=== PATIENT | female | born 1985 | race Caucasian/White ===

== ENCOUNTER 2017-10-22 13:48 | Emergency (ER) | payer OTHER, SELFPAY ==
[2017-10-22 14:09] VITALS: BP 148/90; PULSE 72; RESP 16; TEMP 36.8; O2SAT 98; BMI 41.9
--- NOTE | 2017-10-22 14:16 | HMH.EDUTC ---
[facility] [place] Clinical Impression: Influenza, Dental abscess Disposition: Home, Self-Care Condition on Discharge: Good Instructions: Tooth Decay, Tooth Abscess, Influenza Additional Instructions: ? Too late to start Tamiflu. Most effective when started within 48 hours of symptoms onset ? Lots of rest ? Increase Fluids water, Gatorade, powerade, pedialyte,if /toddler/child ? Alternate Tylenol and / or ibuprofen as discussed for fever, aches, chills x 24 hours without medication for symptoms ? Follow up IMMEDIATELY for new or worsening Symptoms OR no noticeable improvement over the next 48-72 hours, 911 for difficulty or breathing ? You or your child area contagious until no fever, aches, chills for 24 hours with medication for symptoms Take medication as prescribed Return if needed Follow up with dentist as scheduled Prescriptions: Clindamycin HCl [Clindamycin 300mg Cap] 300 mg PO Q6H #28 cap Referrals: Gigi Blank MD [Primary Care Provider] - Time of Disposition: 14:55 Medical Decision Making - Medical Records Medical records reviewed: Yes: I reviewed the patient's medical records. Vital Signs: 10/22/17 14:09 Temperature 98.2 F Temperature Source Oral Pulse Rate [Right Brachial] 72 Respiratory Rate 16 Blood Pressure [Right Arm] 148/90 Blood Pressure Mean [Right Arm] 109 Blood Pressure Source [Right Arm] Automatic Cuff Blood Pressure Position [Right Arm] Sitting 02 Sat by Pulse Oximetry 98 Oxygen Delivery Method Room Air - Talon Inquiry Pt receiving controlled substance: No Talon was queried for this patient: No [facility] [place] - General Stated complaint: abcess in mouth,cough Mode of Arrival: Ambulatory Source of Information: Patient Limitations: No Limitations Description of Symptoms (Recalled from Triage Doc. by RN): pt c/o cough, fever, and oral abcess started a week ago. HEENT Symptoms (Recalled from RN notes): Yes (oral abcess) Resp Symptoms (Recalled from RN notes): Yes (cough) Skin Symptoms (Recalled from RN notes): Yes (fever) MS Symptoms (Recalled from RN notes): No Functional Status (Recalled from RN notes): na - History of Present Illness Provider Complaint: Patient state that she has not felt well in about a week States that she has had cough, congestion fever since Thursday State that yesterday she noticed that she was having some redness and swelling in the top gum above her teeth States that most of her teeth are rotten and broken off at the gumline and she has had several dental abcesses in the past States that she is scheduled to have teeth surgically removed on 11/11 but now she is having this infection - Related Data Home Medications Medication Instructions Recorded Confirmed Aspirin [Aspirin 81mg chewable 81 mg PO DAILY 10/22/17 10/22/17 tab] Buprenorphine HCl/Naloxone HCl 1 each SL DAILY 10/22/17 10/22/17 [Buprenorphin-Naloxon 8-2 mg Sl] Fluconazole [Diflucan 200mg tablet] 200 mg PO BID 10/22/17 10/22/17 Gabapentin [Neurontin 600mg 600 mg PO DAILY 10/22/17 10/22/17 tablet] Metoprolol Succinate 25 mg PO DAILY 10/22/17 10/22/17 Sertraline HCl [Zoloft] 150 mg PO DAILY 10/22/17 10/22/17 hydrOXYzine pamoate [Hydroxyzine 100 mg PO DAILY 10/22/17 10/22/17 Pamoate] Previous Rx's Medication Instructions Recorded Clindamycin HCl [Clindamycin 300mg 300 mg PO Q6H #28 cap 10/22/17 Cap] Allergies Allergy/AdvReac Type Severity Reaction Status Date / Time cefaclor [From CECLOR] Allergy Mild Verified 10/22/17 14:14 ibuprofen [IBUPROFEN] Allergy Mild Verified 10/22/17 14:14 Sulfa (Sulfonamide Allergy Mild Verified 10/22/17 14:14 Antibiotics) [SULFA (SULFONAMIDE ANTIBIOTICS)] tramadol [TRAMADOL] Allergy Mild Verified 10/22/17 14:14 - Worker's Comp Is this a Worker's Comp case?: No [facility] History I have reviewed the patient's past medical history: Yes Laterality Cases: Bilateral: Tonsillectomy - *Social Histo
[2017-10-22 14:28] LABS: UTC Influenza A Antigen Positive (Negative); UTC Influenza B Antigen Negative (Negative)
--- NOTE | 2017-10-22 14:28 | ED_ITS ---
[facility] [place] Disposition Clinical Impression: Influenza, Dental abscess Disposition: Home, Self-Care Condition on Discharge: Good Instructions: Tooth Decay, Tooth Abscess, Influenza Additional Instructions: ? Too late to start Tamiflu. Most effective when started within 48 hours of symptoms onset ? Lots of rest ? Increase Fluids water, Gatorade, powerade, pedialyte,if /toddler/child ? Alternate Tylenol and / or ibuprofen as discussed for fever, aches, chills x 24 hours without medication for symptoms ? Follow up IMMEDIATELY for new or worsening Symptoms OR no noticeable improvement over the next 48-72 hours, 911 for difficulty or breathing ? You or your child area contagious until no fever, aches, chills for 24 hours with medication for symptoms Take medication as prescribed Return if needed Follow up with dentist as scheduled Prescriptions: Clindamycin HCl [Clindamycin 300mg Cap] 300 mg PO Q6H #28 cap Referrals: Gigi Blank MD [Primary Care Provider] - Time of Disposition: 14:55 Medical Decision Making - Medical Records Medical records reviewed: Yes: I reviewed the patient's medical records. Vital Signs: 10/22/17 14:09 Temperature 98.2 F Temperature Source Oral Pulse Rate [Right Brachial] 72 Respiratory Rate 16 Blood Pressure [Right Arm] 148/90 Blood Pressure Mean [Right Arm] 109 Blood Pressure Source [Right Arm] Automatic Cuff Blood Pressure Position [Right Arm] Sitting 02 Sat by Pulse Oximetry 98 Oxygen Delivery Method Room Air - Talon Inquiry Pt receiving controlled substance: No Talon was queried for this patient: No [facility] [place] HPI - General Stated complaint: abcess in mouth,cough Mode of Arrival: Ambulatory Source of Information: Patient Limitations: No Limitations Description of Symptoms (Recalled from Triage Doc. by RN): pt c/o cough, fever, and oral abcess started a week ago. HEENT Symptoms (Recalled from RN notes): Yes (oral abcess) Resp Symptoms (Recalled from RN notes): Yes (cough) Skin Symptoms (Recalled from RN notes): Yes (fever) MS Symptoms (Recalled from RN notes): No Functional Status (Recalled from RN notes): na - History of Present Illness Provider Complaint: Patient state that she has not felt well in about a week States that she has had cough, congestion fever since Thursday State that yesterday she noticed that she was having some redness and swelling in the top gum above her teeth States that most of her teeth are rotten and broken off at the gumline and she has had several dental abcesses in the past States that she is scheduled to have teeth surgically removed on 11/11 but now she is having this infection - Related Data Home Medications Medication Instructions Recorded Confirmed Aspirin [Aspirin 81mg chewable 81 mg PO DAILY 10/22/17 10/22/17 tab] Buprenorphine HCl/Naloxone HCl 1 each SL DAILY 10/22/17 10/22/17 [Buprenorphin-Naloxon 8-2 mg Sl] Fluconazole [Diflucan 200mg tablet] 200 mg PO BID 10/22/17 10/22/17 Gabapentin [Neurontin 600mg 600 mg PO DAILY 10/22/17 10/22/17 tablet] Metoprolol Succinate 25 mg PO DAILY 10/22/17 10/22/17 Sertraline HCl [Zoloft] 150 mg PO DAILY 10/22/17 10/22/17 hydrOXYzine pamoate [Hydroxyzine 100 mg PO DAILY 10/22/17 10/22/17 Pamoate] Previous Rx's Medication Instructions Recorded Clindamycin HCl [Clindamycin 300mg 3
== END 2017-10-22 14:58 | disposition home or self-care (01) ==
PROVIDERS: Emergency Provider Nurse Practitioner; Family Provider Emergency Medicine; PCP Emergency Medicine
DX: J10.1 Influenza due to other identified influenza virus with other respiratory manifestations (principal); K04.7 Periapical abscess without sinus; F17.210 Nicotine dependence, cigarettes, uncomplicated; Z79.82 Long term (current) use of aspirin; Z88.1 Allergy status to other antibiotic agents; Z88.2 Allergy status to sulfonamides; Z88.6 Allergy status to analgesic agent
CPT/HCPCS: 87804; 99201

== ENCOUNTER 2017-12-11 19:42 | Observation (INO) | payer OTHER, SELFPAY ==
[2017-12-11 19:45] VITALS: BP 80/60; PULSE 93; RESP 20; TEMP 37.2; O2SAT 98; BMI 38.0
[2017-12-11 20:11] LABS: Basophils % 0.6 % (0.1-2.0); Eosinophils # 0.2 K/mm3 (0.0-0.4); Eosinophils % 2.6 % (0.1-12.0); Hematocrit 48.1 % (37.0-47.0); Hemoglobin 14.4 g/dL (12.2-16.2); Lymphocytes # 1.6 K/mm3 (0.7-4.5); Lymphocytes % 27.1 K/mm3 (10-50); Mean Corpuscular HGB Conc 29.9 g/dL (31.8-35.4); Mean Platelet Volume 8.5 fl (7.4-10.4); Monocytes # 0.4 K/mm3 (0.1-1.0); Monocytes % 7.3 % (1.7-9.3); Neutrophils # 3.7 K/mm3 (1.8-7.8); Neutrophils % 62.3 % (37.0-80.0); Platelet Count 143 K/mm3 (142-424); Red Blood Count 5.53 M/mm3 (4.20-5.40); Red Cell Distribution Width 15.1 % (11.5-17.5)
[2017-12-11 20:31] LABS: Microscopic, Urine URINE MICROSCOPIC (MICROSCOPIC)
[2017-12-11 20:38] LABS: Alanine Aminotransferase 29 U/L (12-78); Albumin Level 3.7 gm/dL (3.4-5.0); Albumin/Globulin Ratio 1.1 (1.1-1.8); Alkaline Phosphatase 145 U/L (46-116); Anion Gap 10.2 mEq/L (5-15); Aspartate Amino Transferase 23 U/L (15-37); Bilirubin,Total 0.7 mg/dL (0.2-1.0); Blood Urea Nitrogen 11 mg/dL (7-18); CKMB Relative Index 1.2 U/L (0-4.0); Calcium 8.5 mg/dL (8.5-10.1); Carbon Dioxide 31 mmol/L (21.0-32.0); Chloride 100 mmol/L (98-107); Creatine Kinase 74 U/L (26-192); Creatine Kinase MB 0.9 ng/ml (0.0-3.6); Creatinine Clearance Estimated 171 mL/min (0-300); Creatinine,Serum 0.86 mg/dL (0.55-1.02); Estimated Glomerular Filt Rate 77 ml/min (>60); GFR (African American) 94 ML/MIN (>60); Globulin 3.4 gm/dl (1.3-3.2); Glucose 104 mg/dL (74-106); Potassium 3.2 mmoL/L (3.5-5.1); Sodium 138 mmol/L (136-145); Total Protein,Serum 7.1 gm/dL (6.4-8.2); Troponin I < 0.02 ng/ml (0.00-0.06)
[2017-12-11 20:44] LABS: Appearance,Urine CLOUDY (Clear); Bilirubin,Urine Negative (Negative); Blood, Urine Negative (Negative); Color,Urine YELLOW (Yellow); Glucose,Urine (UA) Negative (Negative); Ketones,Urine Negative (Negative); Leukocyte Esterase,Urine 2+ (Negative); Nitrate,Urine Negative (Negative); PH,Urine 8.5 (5.0-8.5); Protein,Urine 1+ (Negative); Specific Gravity, Urine 1.015 (1.005-1.030)
[2017-12-11 20:52] LABS: Amphetamine/Metha Screen,Urine Negative ng/mL (<1000); Barbiturates Screen,Urine Negative ng/mL (<200); Benzodiazepines Screen,Urine Positive ng/mL (200); Cannabinoid Screen,Urine Negative ng/mL (<50); Cocaine Screen,Urine Negative ng/g (<300); Methadone Screen,Urine Negative ng/mL (<300); Opiate Screen,Urine Positive ng/mL (<300); Phencyclidine Screen,Urine Negative ng/mL (<25)
[2017-12-11 20:53] LABS: Bacteria,Urine 1+ /lpf; RBC,Urine Occasional #/hpf (0-3); Squamous Epithelial Cell,Urine Occasional #/hpf (0-5); WBC,Urine TNTC #/hpf (0-3)
--- NOTE | 2017-12-11 21:13 | HMH.EDOD ---
ED Disposition Clinical Impression: Abnormal EKG Drug overdose Qualifiers: Encounter type: initial encounter Injury intent: accidental or unintentional Qualified Code(s): T50.901A - Poisoning by unspecified drugs, medicaments and biological substances, accidental (unintentional), initial encounter Disposition: Admitted as Observation Condition on Discharge: Serious Referrals: Gigi Blank MD [Primary Care Provider] - - Critical Care Critical Care Time: Yes Attestation: On 12/11/17, the high probability of a clinically significant, sudden or life threatening deterioration of the following system(s) required my full and direct attention, intervention and personal management. The time I documented below is in addition to time spent performing reported procedures but includes the following listed in this critical care notation. Total Critical Care Time: 60 Vital system(s) involved:: Metabolic Failure My critical care processes included: Assessment & monitoring of V/S, Initial and Re-exams, Coordinating Care, Medication Orders and management Medical Decision Making - Medical Records Medical records reviewed: Yes: I reviewed the patient's medical records. - Talon Inquiry Pt receiving controlled substance: No Vital Signs: 12/11/17 19:45 12/11/17 23:46 12/12/17 02:39 Temperature 98.9 F 98.9 F Temperature Source Oral Oral Pulse Rate 85 Pulse Rate [Right Brachial] 93 H 73 Respiratory Rate 20 20 18 Blood Pressure 121/78 Blood Pressure [Right Arm] 80/60 138/75 Blood Pressure Mean [Right Arm] 66 96 Blood Pressure Source [Right Arm] Manual Cuff/ Palpation Automatic Cuff Blood Pressure Position Sitting Blood Pressure Position [Right Arm] Sitting 02 Sat by Pulse Oximetry 98 94 L Oxygen Delivery Method Nasal Cannula Room Air - Lab Data Lab results reviewed: Yes: I reviewed the patient's lab results. Lab Results 12/11/17 20:05: WBC 6.0, RBC 5.53 H, Hgb 14.4, Hct 48.1 H, MCV 87.0, MCH 26.0 L, MCHC 29.9 L, RDW 15.1, Plt Count 143, MPV 8.5, Neut % (Auto) 62.3, Lymph % (Auto) 27.1, [place] % (Auto) 7.3, Eos % (Auto) 2.6, Baso % (Auto) 0.6, Neut # (Auto) 3.7, Lymph # (Auto) 1.6, [place] # (Auto) 0.4, Eos # (Auto) 0.2, Baso # (Auto) 0.0 12/11/17 20:05: Sodium 138, Potassium 3.2 L, Chloride 100, Carbon Dioxide 31, Anion Gap 10.2, BUN 11, Creatinine 0.86, Estimated Creat Clear 171, Estimated GFR 77, Est GFR ( Amer) 94, Glucose 104, Calcium 8.5, Total Bilirubin 0.7, AST 23, ALT 29, Alkaline Phosphatase 145 H, Total Creatine Kinase 74, CK-MB (CK-2) 0.9, CK-MB (CK-2) Rel Index 1.2, Troponin I < 0.02, Total Protein 7.1, Albumin 3.7, Globulin 3.4 H, Albumin/Globulin Ratio 1.1 12/11/17 20:20: Urine Color Yellow, Urine Appearance Cloudy, Urine pH 8.5, Ur Specific [place] 1.015, Urine Protein 1+, Urine Glucose (UA) Negative, Urine Ketones Negative, Urine Blood Negative, Urine Nitrate Negative, Urine Bilirubin Negative, Urine Urobilinogen 1.0, Ur Leukocyte Esterase 2+ A, Urine RBC Occasional, Urine WBC Tntc, Ur Squamous Epith Cells Occasional, Urine Bacteria 1+ 12/11/17 20:20: Urine Opiates Screen Positive H, Ur Barbituates Screen Negative, Ur Phencyclidine Scrn Negative, Ur Amphetamines Screen Negative, U Methamphetamines Scrn Negative, U Benzodiazepines Scrn Positive H, Urine Cocaine Screen Negative, U Marijuana (THC) Screen Negative 12/11/17 20:20: Urine HCG, Qual Negative 12/11/17 22:10: Troponin I < 0.02 Result diagrams: 12/11/17 20:05 12/11/17 20:05 Orders (Tests/Meds): ED MEDICATIONS Generic Name Dose Route Start Last Admin Trade Name Freq PRN Reason Stop Dose Admin Levofloxacin/Dextrose 500 mg in 100 mls @ 100 mls/hr 12/11/17 23:45 12/12/17 02:00 Levaquin 500mg/100ml Premix IV 12/25/17 23:44 100 mls/hr Q24H KHOA Administration Protocol Discontinued Medications Generic Name Dose Route Start Last Admin Trade Name Freq PRN Reason Stop Dose Admin Lorazepam 2 mg 12/11/17 20:02
[2017-12-11 22:53] LABS: Troponin I < 0.02 ng/ml (0.00-0.06)
--- NOTE | 2017-12-11 23:38 | PC.NURSE ---
Abhay Smith speaking with Dr. Zamora
--- NOTE | 2017-12-11 23:40 | XR_ITS ---
XR chest portable HISTORY: History of heart disease and prior CABG ITS.REASON: overdose ORDERING PHYSICIAN: Jenaro Moore MD PATIENT AGE: 32 years COMPARISON: 08/16/2015 FINDINGS: There has been prior median sternotomy. There are low lung volumes. Calcified granulomas present in right upper lobe. No lobar consolidation or collapse. Patchy density noted in the right lung base and could be due to vascular crowding or atelectasis. IMPRESSION: Vascular crowding versus patchy atelectasis or infiltrate in the right lung base
[2017-12-11 23:46] VITALS: BP 138/75; PULSE 73; RESP 20; O2SAT 94
[2017-12-11 23:51] LABS: Urine Pregnancy, HCG Qual. Negative (Negative)
[2017-12-12 02:39] VITALS: BP 121/78; PULSE 85; RESP 18; TEMP 37.2; O2SAT 94
[2017-12-12 03:21] VITALS: BP 150/90; PULSE 71; RESP 26; TEMP 36.8; O2SAT 92; BMI 42.7
[2017-12-12 03:49] VITALS: O2SAT 92
[2017-12-12 04:12] LABS: Acetaminophen 0 ug/mL (10-30)
[2017-12-12 04:48] LABS: Blood Urea Nitrogen 11 mg/dL (7-18); Carbon Dioxide 28 mmol/L (21.0-32.0); Chloride 103 mmol/L (98-107); Creatinine Clearance Estimated 108 mL/min (0-300); Creatinine,Serum 0.77 mg/dL (0.55-1.02); Estimated Glomerular Filt Rate 88 ml/min (>60); GFR (African American) 107 ML/MIN (>60); Glucose 107 mg/dL (74-106); Magnesium 1.6 mg/dL (1.4-2.2); Phosphorous 3.9 mg/dL (2.4-4.9); Sodium 137 mmol/L (136-145)
[2017-12-12 05:02] LABS: Troponin I < 0.02 ng/ml (0.00-0.06)
[2017-12-12 05:18] LABS: Basophils % 0.2 % (0.1-2.0); Eosinophils % 0.3 % (0.1-12.0); Hematocrit 44.3 % (37.0-47.0); Hemoglobin 13.5 g/dL (12.2-16.2); Lymphocytes # 1.3 K/mm3 (0.7-4.5); Lymphocytes % 18.8 K/mm3 (10-50); Mean Corpuscular HGB Conc 30.4 g/dL (31.8-35.4); Mean Corpuscular Hemoglobin 26.1 pg (27.0-31.2); Mean Corpuscular Volume 85.7 fl (81-99); Mean Platelet Volume 9.4 fl (7.4-10.4); Monocytes # 0.5 K/mm3 (0.1-1.0); Monocytes % 6.9 % (1.7-9.3); Neutrophils # 5.2 K/mm3 (1.8-7.8); Neutrophils % 73.8 % (37.0-80.0); Platelet Count 131 K/mm3 (142-424); Red Blood Count 5.17 M/mm3 (4.20-5.40); White Blood Count 7.1 K/mm3 (4.8-10.8)
--- NOTE | 2017-12-12 05:19 | PC.NURSE ---
PT ARRIVED TO FLOOR A&O X3. GCS OF 15. PT DID HOWEVER DISPLAY TREMORS AND STATED THAT SHE WAS HAVING MUSCLE TREMORS. SHE REQUESTED ATIVAN. PT WAS ADMIN ATIVAN PER ORDER AND VSS. PT HAS REMAINED ON RA THIS SHIFT. FAMILY AT BEDSIDE. NO OTHER CONCERNS NOTED AT THIS TIME. WILL CONTINUE TO MONITOR.
[2017-12-12 07:21] VITALS: BP 159/80; PULSE 67; RESP 16; TEMP 37.2; O2SAT 90
--- NOTE | 2017-12-12 07:33 | PC.NURSE ---
REPORT HAND OFF TO Kei HARDEN
[2017-12-12 08:00] VITALS: O2SAT 90
--- NOTE | 2017-12-12 09:04 | HMH.HP ---
*Admission Date: 12/12/17 *Chief complaint: drug overdose *History of present illness: Che is a 32-year-old white female who was brought to the emergency room last night by EMS because of altered mental status and twitching with a history of drug overdose. She has a history of drug addiction and has been following with a Suboxone clinic in [place]. In addition to Suboxone she has been abusing heroine and Gabapentin. There was no history of lefty seizures. Upon evaluation in the emergency room, her urine drug screen was positive for benzos and opiates. Laboratory data was remarkable for hypokalemia with a potassium of 3.2. Cardiac enzymes were negative. EKG did however show some inverted T waves in the lateral leads. 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 She received supportive care in emergency room including IV fluids and appeared clinically stable however because of her EKG changes she was admitted for serial enzymes to rule out acute SC. At the time of my exam this morning, she is sleeping but easily arousable. She complains of some general malaise and body aches. Denies chest pain, palpitations, or shortness of breath. She's had some nausea but no vomiting. Denies abdominal pain. She does feel hungry [facility] History Medical History: Reports:: Congestive Heart Failure, Deep Vein Thrombosis, Hypertension Denies:: Cancer, Diabetes Mellitus Type 1, Diabetes Mellitus Type 2, MRSA Comment: Valvular heart disease/bacterial endocarditis Laterality Cases: Bilateral: Tonsillectomy Other Surgeries: Yes: Hysterectomy-Partial, Other (gallbladder removal) Amputation: No Fractures: No Comment: Cholecystectomy - *Social History Educational Level: Attended High School Smoking Status: Current every day smoker Tobacco Type: cigarettes # Packs/Day (cigarettes): 2 Alcohol Intake: never Substance Use Type: heroin, prescription drug Last Used Substance: hours (ago) Occupational Status: unemployed Housing: apartment - Psychiatric History Expresses thoughts of harming self/others: None Suicide Plan Description: No Plan *Family Hx:: Hyperlipidemia, Hypertension Review of Systems - Constitutional Reports body ache(s), Denies fever(s) - Eyes Reports blurry vision, Denies double vision - ENT Reports nasal congestion, Denies bleeding gums, Denies difficulty swallowing - *Cardiovascular Denies chest pain, Denies shortness of breath, Denies rapid, pounding, or irregular heartbeat - *Respiratory Denies chest congestion, Denies shortness of breath, Denies coughing up blood - *Gastrointestinal Reports constipation, Reports nausea, Denies abdominal pain, Denies vomiting - *Genitourinary Denies difficulty urinating - *Musculoskeletal Denies joint swelling - Integumentary/Breasts Denies lesions - *Neurologic Denies abnormal walking, Denies abnormal speech Comments: muscle twitching - Psychiatric Reports abnormal sleep pattern, Reports lack of enjoyment, Denies hearing things others do not hear - Endocrine Denies heat intolerance, Denies rapid, pounding, or irregular heartbeat - Hematologic/Lymphatic Denies easy bleeding, Denies easy bruising - Allergic/Immunologic Denies itchy eyes, Denies throat swelling, Denies wheezing Meds Home Medications Medication Instructions Recorded Confirmed Type Buprenorphine HCl/Naloxone HCl 1 tab SL DAILY 10/22/17 12/12/17 History [Buprenorphin-Naloxon 8-2 mg Sl] Fluconazole [Diflucan 200mg tablet] 200 mg PO BID 10/22/17 12/12/17 History Gabapentin [Neurontin 600mg 600 mg PO TID 10/22/17 12/12/17 History tablet] Sertraline HCl [Zoloft] 150 mg PO DAILY 10/22/17 12/12/17 History hydrOXYzine pamoate [Hydroxyzine 100 mg PO TID 10/22/17 12/12/17 History Pamoate] Aspirin [Aspirin 81mg EC Tab] 81 mg PO DAILY 12/12/17 12/12/17 History Metoprolol Tartrate [Lopressor 25 mg PO BID 12/12/17
--- NOTE | 2017-12-12 11:20 | P.CONPHA_ITS ---
[facility] Pharmacy VTE Monitoring - Patient Demographics Admission date: 12/12/17 Report Date: 12/12/17 Time: 11:20 Allergies/Adverse Reactions: Patient Allergies cefaclor [From CECLOR] Allergy (Mild, Verified 12/11/17 19:57) ibuprofen [IBUPROFEN] Allergy (Mild, Verified 12/11/17 19:57) Sulfa (Sulfonamide Antibiotics) [SULFA (SULFONAMIDE ANTIBIOTICS)] Allergy (Mild , Verified 12/11/17 19:57) tramadol [TRAMADOL] Allergy (Mild, Verified 12/11/17 19:57) Height: 1.73 m Weight: 127.459 kg Patient Problems: Current Active Problems Drug overdose (Acute) Abnormal EKG (Acute) - VTE Risk Labs: VTE Related Lab Results Hgb 13.5 g/dL (12.2-16.2) 12/12/17 03:35 Hct 44.3 % (37.0-47.0) 12/12/17 03:35 Plt Count 131 K/mm3 (142-424) L 12/12/17 03:35 BUN 11 mg/dL (7-18) 12/12/17 03:35 Creatinine 0.77 mg/dL (0.55-1.02) 12/12/17 03:35 Estimated Creat Clear 108 mL/min (0-300) 12/12/17 03:35 VTE Score: 8 VTE Risk Level: Moderate Risk - Prophylaxis VTE Prophylaxis Ordered?: Yes Types of VTE Prophylaxis: TEDS Knee High Location of Applied Device: Bilateral Lower Extremeties - VTE Diagnosis Confirmed Treatment or plan recommended: Continue Current Treatment
--- NOTE | 2017-12-13 11:40 | HMH.DCSUM ---
General - General Admission date: 12/12/17 <Zee Talamantes - 12/13/17 11:43> Discharge date: 12/12/17 <Zee Talamantes - 12/13/17 11:43> HPI HPI: Che is a 32-year-old white female who was brought to the emergency room last night by EMS because of altered mental status and twitching with a history of drug overdose. She has a history of drug addiction and has been following with a Suboxone clinic in [place]. In addition to Suboxone she has been abusing heroine and Gabapentin. There was no history of lefty seizures. Upon evaluation in the emergency room, her urine drug screen was positive for benzos and opiates. Laboratory data was remarkable for hypokalemia with a potassium of 3.2. Cardiac enzymes were negative. EKG did however show some inverted T waves in the lateral leads. 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 She received supportive care in emergency room including IV fluids and appeared clinically stable however because of her EKG changes she was admitted for serial enzymes to rule out acute MA. <Zee Talamantes - 12/13/17 11:43> Hospital Course Hospital Course: By the next day she appeared stable. Enzymes were negative. Her diet was advanced and she was stable to be discharged home and will f/u with her process checker as outpt. <Zee Talamantes - 12/13/17 11:43> Objective Vital signs: Temp Pulse Resp BP Pulse Ox 99.0 F 67 16 159/80 90 L 12/12/17 07:21 12/12/17 07:21 12/12/17 07:21 12/12/17 07:21 12/12/17 08:00 <Juan Antonio Conn - 12/22/17 08:35> Temp Pulse Resp BP Pulse Ox 99.0 F 67 16 159/80 90 L 12/12/17 07:21 12/12/17 07:21 12/12/17 07:21 12/12/17 07:21 12/12/17 08:00 <Zee Talamantes - 12/13/17 11:43> Narrative: - Constitutional Comments: awakened from sleep. NAD. Cooperative with exam - *Routine HEENT Exam Head: Present: normocephalic, atraumatic Eye: Present: PERRL. Absent: scleral injection, nystagmus ENT: Present: mucous membranes moist, nares patent. Absent: sinus tenderness - *Routine Neck Exam Present: supple. Absent: carotid bruit, lymphadenopathy - *Routine Respiratory Exam Present: CTA bilaterally. Absent: respiratory distress, wheezes - *Routine Cardiovascular Exam Present: RRR, murmur - *Routine Abdominal Exam Present: soft. Absent: tenderness, distended, guarding Comments: diminished BS - *Routine Extremities Exam Absent: edema - *Routine Skin Exam Comments: papular rash on upper arms <Zee Talamantes 12/13/17 11:43> DS: Diagnosis - Discharge Diagnosis (1) Abnormal EKG Status: Acute (2) Drug abuse and dependence Status: Acute (3) Hx of tricuspid valve replacement Status: Acute (4) Hypertension Status: Acute <Zee Talamantes 12/13/17 11:40> (1) Abnormal EKG Status: Acute (2) Drug overdose Status: Acute (3) Drug abuse and dependence Status: Acute (4) Hypertension Status: Acute (5) Valvular heart disease Status: Acute (6) Hx of tricuspid valve replacement Status: Acute <Juan Antonio Cnon 12/22/17 08:35> Discharge Plan - Patient Discharge Instructions ACTIVITY: Continue current activity <Zee Talamantes 12/13/17 11:43> DIET: continue same diet <Zee Talamantes 12/13/17 11:43> Patient Instructions: DI for Drug Overdose in Adults <Juan Antonio Conn 12/22/17 08:35> Forms: <Juan Antonio Cnon 12/22/17 08:35> - Follow up Plan Follow up with: Gigi Blank MD [Primary Care Provider] - (5-7 days) <Juan Antonio Conn 12/22/17 08:35> Disposition: Home, Self-Care <Juan Antonio Conn 12/22/17 08:35> Home Medications: Home Medications Medication Instructions Recorded Confirmed Type Buprenorphine HCl/Naloxone HCl 1 tab SL DAILY 10/22/17 12/12/17 History [Buprenorphin-Naloxon 8-2 mg Sl] Fluconazole [Dif
--- NOTE | 2017-12-13 11:44 | P.DS_ITS ---
General - General Admission date: 12/12/17 <Zee Talamantes - 12/13/17 11:43> Discharge date: 12/12/17 <Zee Talamantes - 12/13/17 11:43> HPI HPI: Che is a 32-year-old white female who was brought to the emergency room last night by EMS because of altered mental status and twitching with a history of drug overdose. She has a history of drug addiction and has been following with a Suboxone clinic in [place]. In addition to Suboxone she has been abusing heroine and Gabapentin. There was no history of lefty seizures. Upon evaluation in the emergency room, her urine drug screen was positive for benzos and opiates. Laboratory data was remarkable for hypokalemia with a potassium of 3.2. Cardiac enzymes were negative. EKG did however show some inverted T waves in the lateral leads. 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 She received supportive care in emergency room including IV fluids and appeared clinically stable however because of her EKG changes she was admitted for serial enzymes to rule out acute MS. <Zee Talamantes - 12/13/17 11:43> Hospital Course Hospital Course: By the next day she appeared stable. Enzymes were negative. Her diet was advanced and she was stable to be discharged home and will f/u with her demand planning manager as outpt. <Zee Talamantes - 12/13/17 11:43> Objective Vital signs: Temp Pulse Resp BP Pulse Ox 99.0 F 67 16 159/80 90 L 12/12/17 07:21 12/12/17 07:21 12/12/17 07:21 12/12/17 07:21 12/12/17 08:00 <Juan Antonio Conn - 12/22/17 08:35> Temp Pulse Resp BP Pulse Ox 99.0 F 67 16 159/80 90 L 12/12/17 07:21 12/12/17 07:21 12/12/17 07:21 12/12/17 07:21 12/12/17 08:00 <Zee Talamantes - 12/13/17 11:43> Narrative: - Constitutional Comments: awakened from sleep. NAD. Cooperative with exam - *Routine HEENT Exam Head: Present: normocephalic, atraumatic Eye: Present: PERRL. Absent: scleral injection, nystagmus ENT: Present: mucous membranes moist, nares patent. Absent: sinus tenderness - *Routine Neck Exam Present: supple. Absent: carotid bruit, lymphadenopathy - *Routine Respiratory Exam Present: CTA bilaterally. Absent: respiratory distress, wheezes - *Routine Cardiovascular Exam Present: RRR, murmur - *Routine Abdominal Exam Present: soft. Absent: tenderness, distended, guarding Comments: diminished BS - *Routine Extremities Exam Absent: edema - *Routine Skin Exam Comments: papular rash on upper arms <Zee Talamantes - 12/13/17 11:43> DS: Diagnosis - Discharge Diagnosis (1) Abnormal EKG Status: Acute (2) Drug abuse and dependence Status: Acute (3) Hx of tricuspid valve replacement Status: Acute (4) Hypertension Status: Acute <Zee Talamantes - 12/13/17 11:40> (1) Abnormal EKG Status: Acute (2) Drug overdose Status: Acute (3) Drug abuse and dependence Status: Acute (4) Hypertension Status: Acute (5) Valvular heart disease Status: Acute (6) Hx of tricuspid valve replacement Status: Acute <Juan Antonio Conn - 12/22/17 08:35> Discharge Plan - Patient Discharge Instructions ACTIVITY: Continue current activity <Zee Talamantes - 12/13/17 11:43> DIET: continue same diet <Zee Talamantes - 12/13/17 11:43>
== END 2017-12-12 14:28 | disposition home or self-care (01) ==
LOC: ER 19:51 → 2ND 12-12 02:50
PROVIDERS: Admitting Provider Family Medicine; Emergency Provider Emergency Medicine; Family Provider Emergency Medicine; PCP Emergency Medicine; Visit Provider Family Medicine
DX: T50.7X1A Poisoning by analeptics and opioid receptor antagonists, accidental (unintentional), initial encounter (principal); T42.6X1A Poisoning by other antiepileptic and sedative-hypnotic drugs, accidental (unintentional), initial encounter; T40.1X1A Poisoning by heroin, accidental (unintentional), initial encounter; R41.82 Altered mental status, unspecified; E88.9 Metabolic disorder, unspecified
CPT/HCPCS: 36415; 71045; 80048; 80053; 80305; 80329; 81001; 81025; 82550; 82553; 83735; 84100; 84484; 85025; 87086; 93005; 96365; 96367; 96375; 99284; G0378; J1956; J2405

== ENCOUNTER 2018-12-23 08:18 | Observation (INO) ==
--- NOTE | 2018-12-23 08:32 | Emergency Department Note ---
ED Disposition Clinical Impression: Pulmonary emboli Qualifiers: Pulmonary embolism type: unspecified Chronicity: unspecified Acute cor pulmonale presence: without acute cor pulmonale Qualified Code(s): I26.99 - Other pulmonary embolism without acute cor pulmonale Pneumonia Qualifiers: Pneumonia type: due to unspecified organism Laterality: unspecified laterality Lung location: unspecified part of lung Qualified Code(s): J18.9 - Pneumonia, unspecified organism Disposition: Admitted as Observation Condition on Discharge: Good Instructions: DI for Diarrhea and Traveler's Diarrhea -- Adult, DI for Acute Abdomen, DI for Diarrhea and Traveler's Diarrhea -- Child, DI for Nausea -- Adult, DI for Nausea -- Child Referrals: Provider,Referral, MD [Primary Care Provider] - - Critical Care Critical Care Time: No Attestation: On , the high probability of a clinically significant, sudden or life threatening deterioration of the following system(s) required my full and direct attention, intervention and personal management. The time I documented below is in addition to time spent performing reported procedures but includes the following listed in this critical care notation. Medical Decision Making - Medical Records Medical records reviewed: Yes: I reviewed the patient's medical records. - Talon Inquiry Pt receiving controlled substance: Yes Talon was queried for this patient: No Risks and benefits of using a controlled substance: were discussed with pt by me Vital Signs: 12/23/18 08:19 12/23/18 08:37 12/23/18 09:07 Temperature 99.5 F Temperature Source Oral Pulse Rate [Right Radial] 80 Respiratory Rate 20 Blood Pressure [Right Arm] 138/55 L Blood Pressure Mean [Right Arm] 82 Blood Pressure Source [Right Arm] Blood Pressure Position [Right Arm] 02 Sat by Pulse Oximetry 90 L 94 L 95 Oxygen Delivery Method Room Air Nasal Cannula Nasal Cannula Oxygen Flow Rate (LPM) 2 3.5 12/23/18 09:18 12/23/18 10:11 12/23/18 10:30 Temperature 98.9 F 98.4 F Temperature Source Oral Oral Pulse Rate [Right Radial] 84 80 73 Respiratory Rate 19 18 16 Blood Pressure [Right Arm] 125/63 113/65 134/76 Blood Pressure Mean [Right Arm] 83 81 95 Blood Pressure Source [Right Arm] Automatic Cuff Automatic Cuff Automatic Cuff Blood Pressure Position [Right Arm] Supine Supine Supine 02 Sat by Pulse Oximetry 96 95 96 Oxygen Delivery Method Nasal Cannula Nasal Cannula Oxygen Flow Rate (LPM) 3 3 3 12/23/18 11:00 12/23/18 11:30 12/23/18 12:00 Temperature 97.6 F 98.3 F 98.0 F Temperature Source Oral Oral Oral Pulse Rate [Right Radial] 70 71 67 Respiratory Rate 19 20 20 Blood Pressure [Right Arm] 125/37 L 131/74 132/82 Blood Pressure Mean [Right Arm] 66 93 98 Blood Pressure Source [Right Arm] Automatic Cuff Automatic Cuff Automatic Cuff Blood Pressure Position [Right Arm] Supine Supine Supine 02 Sat by Pulse Oximetry 97 94 L 97 Oxygen Delivery Method Nasal Cannula Nasal Cannula Nasal Cannula Oxygen Flow Rate (LPM) 3 3 3 12/23/18 12:41 12/23/18 13:23 12/23/18 13:30 Temperature Temperature Source Pulse Rate [Right Radial] 68 64 65 Respiratory Rate 19 18 16 Blood Pressure [Right Arm] 128/80 117/68 130/79 Blood Pressure Mean [Right Arm] 96 84 96 Blood Pressure Source [Right Arm] Automatic Cuff Automatic Cuff Automatic Cuff Blood Pressure Position [Right Arm] Supine Supine Right Lateral 02 Sat by Pulse Oximetry 96 93 L 94 L Oxygen Delivery Method Nasal Cannula Nasal Cannula Nasal Cannula Oxygen Flow Rate (LPM) 3 3 3 12/23/18 14:00 12/23/18 14:34 12/23/18 15:13 Temperature 97.7 F Temperature Source Oral Pulse Rate [Right Radial] 67 62 61 Respiratory Rate 14 19 20 Blood Pressure [Right Arm] 137/86 95/54 L 119/76 Blood Pressure Mean [Right Arm] 103 67 90 Blood Pressure Source [Right Arm] Automatic Cuff Automatic Cuff Automatic Cuff Blood Pressure Position [Right Arm] Right Lateral Supine Supine 02 Sat by Pulse Oximetry 94 L 99 96 Oxygen Delivery Method Nasal Cannula Nasal Cannula Nasal Cannula Oxygen Flow Rate (LPM) 3 3 3 - Lab Data Lab Results 12/23/18 08:25: WBC 6.4, RBC 4.15 L, Hgb 11.5 L, Hct 35.0 L, MCV 84.3, MCH 27.6, MCHC 32.8, RDW 15.3, Plt Count 111 L, MPV 8.2, Neut % (Auto) 89.1 H, Lymph % ( Auto) 6.3 L, [place] % (Auto) 4.3, Eos % (Auto) 0.2, Baso % (Auto) 0.2, Neut # (Auto) 5.7, Lymph # (Auto) 0.4 L, [place] # (Auto) 0.3, Eos # (Auto) 0.0, Baso # (Auto) 0.0, Total Counted 100, Neutrophils % (Manual) 90 H, Band Neutrophils % 2.0, Lymphocytes % (Manual) 6 L, Monocytes % (Manual) 2, Platelet Estimate Sligh t decrease, RBC Morphology Normal 12/23/18 08:25: Sodium 137, Potassium 3.7, Chloride 101, Carbon Dioxide 24, Anion Gap 15.7 H, BUN 8, Creatinine 0.93, Estimated Creat Clear 138, Estimated GFR 70, Est GFR ( Amer) 85, Glucose 150 H, Calcium 8.4 L, Total Bilirubin 0.9, AST 22, ALT 23, Alkaline Phosphatase 132 H, Troponin I < 0.02, Total Protein 6.8, Albumin 3.1 L, Globulin 3.7 H, Albumin/Globulin Ratio 0.8 L 12/23/18 08:25: Lactate 2.2 H 12/23/18 08:25: Urine Color Yellow, Urine Appearance Sl cloudy, Urine pH 7.0, Ur Specific [place] 1.010, Urine Protein Negative, Urine Glucose (UA) Negative, Urine Ketones Negative, Urine Blood 1+, Urine Nitrate Negative, Urine Bilirubin Negative, Urine Urobilinogen 1.0, Ur Leukocyte Esterase Negative, Urine RBC 3-5, Urine WBC Occasional, Ur Squamous Epith Cells 5-10, Urine Bacteria 2+ 12/23/18 08:25: Lipase 85 12/23/18 08:25: Serum HCG, Qual Negative 12/23/18 08:25: D-Dimer 1190 H* 12/23/18 08:25: Specimen Source Left radial, O2 % 3.5 lpm nc, ABG pH 7.59 H*, ABG pCO2 24.5 L, ABG pO2 132.4 H, ABG HCO3 22.7, ABG Total CO2 23.5, ABG O2 Saturation 99, ABG Base Excess 0.9, Donovan Test Acceptable 12/23/18 09:12: Urine Opiates Screen Positive H, Urine Methadone Screen Negati ve, Ur Barbituates Screen Negative, Ur Phencyclidine Scrn Positive H, Ur Am phetamines Screen Negative, U Benzodiazepines Scrn Negative, Urine Cocaine Screen Negative, U Marijuana (THC) Screen Positive H 12/23/18 13:02: Lactate 0.7 Result diagrams: 12/23/18 08:25 12/23/18 08:25 Orders (Tests/Meds): ED MEDICATIONS Generic Name Dose Route Start Last Admin Trade Name Freq PRN Reason Stop Dose Admin Levofloxacin/Dextrose 500 mg in 100 mls @ 100 mls/hr 12/23/18 14:15 12/23/18 14:19 Levaquin 500mg/100ml Premix IV 01/06/19 14:14 100 mls/hr Q24H KHOA Administration Protocol Discontinued Medications Generic Name Dose Route Start Last Admin Trade Name Freq PRN Reason Stop Dose Admin Albuterol/Ipratropium 3 ml 12/23/18 08:28 12/23/18 08:50 Duoneb 3ml Neb IH 12/23/18 08:29 3 ml ONCE ONE Administration Enoxaparin Sodium 100 mg 12/23/18 15:27 12/23/18 15:36 Lovenox 100mg/Ml Syringe SQ 12/23/18 15:28 100 mg ONCE ONE Administration Hydromorphone HCl 1 mg 12/23/18 09:22 12/23/18 09:23 Dilaudid 2mg/Ml Syringe IV 12/23/18 09:23 Not Given ONCE ONE Sodium Chloride 500 mls @ 999 mls/hr 12/23/18 09:30 12/23/18 10:15 Sod Chlor 0.9% 1000ml Bag IV 12/23/18 10:00 999 mls/hr .Q31M KHOA Administration Ioversol 70 ml 12/23/18 10:05 12/23/18 10:06 Rad-Optiray 350 100ml Vial IV 12/23/18 10:06 70 ml ONCE ONE Administration Protocol Morphine Sulfate 2 mg 12/23/18 09:17 12/23/18 09:20 Morphine 2mg/Ml Syringe IV 12/23/18 09:18 2 mg ONCE ONE Administration Morphine Sulfate 4 mg 12/23/18 14:26 12/23/18 14:31 Morphine 4mg/Ml Syringe IV 12/23/18 14:27 4 mg ONCE ONE Administration Ondansetron HCl 4 mg 12/23/18 08:59 12/23/18 09:01 Zofran 4mg/2ml Vial IV 12/23/18 09:00 4 mg ONCE ONE Administration Sodium Chloride 10 ml 12/23/18 10:05 12/23/18 10:06 Rad-Saline Flush 10ml Syringe IV 12/23/18 10:06 10 ml ONCE ONE Administration Sodium Chloride 20 ml 12/23/18 10:05 12/23/18 10:06 Rad-Ns 20ml Vial IV 12/23/18 10:06 20 ml ONCE ONE Administration Sodium Chloride 20 ml 12/23/18 10:05 12/23/18 10:06 Rad-Ns 20ml Vial IV 12/23/18 10:06 20 ml ONCE ONE Administration ORDERS Category Date Time Status Blood Culture Stat Micro 12/23/18 08:25 Received Urine Culture Stat Micro 12/23/18 08:25 Received ABG [Arterial Blood Gas] Stat RT 12/23/18 15:39 Ordered - CT Data CT Scan: Head, Chest Time Received: 15:[address] Reviewed: Yes: I have viewed the radiologist's interpretation - ECG Data Tracing #1 I reviewed this ECG and interpreted as documented below: Normal Sinus Rhythm: Yes (prolong QTc, no stemi) Medical Decision Narrative: admit d/w Dr Perez, differential includes pulmonary emboli, pneumonia, ileus, hypoxia, abnormal ekg General Adult HPI - General Chief complaint: Abdominal Pain Stated complaint: nausea Time Seen by Provider: 12/23/18 08:29 Mode of Arrival: EMS Source of Information: Patient, EMS Limitations: No Limitations Description of Symptoms (Recalled from ER Triage Doc. by RN): to ed per squad with c/o fever, nausea, vomiting, lower abd pain, lower back pain, sob x several days. pt states she has been unable "to keep anything down". squad reports oral temp per medic 103. pt denies diarrhea or sick contacts. cpta zofran 2mg. IV - History of Present Illness HPI narrative: 2 day hx NV and mild to mod lower abdominal ache rad to back, constant, +fever, no injury, +short of breath, hx copd, treated w/ zofran by ems, pt denies allergy to morphine - Related Data Home Medications Medication Instructions Recorded Confirmed Fluconazole [Diflucan] 400 mg PO DAILY 12/23/18 12/23/18 Allergies Allergy/AdvReac Type Severity Reaction Status Date / Time cefaclor [From CECLOR] Allergy Mild Verified 07/16/18 04:55 ibuprofen [IBUPROFEN] Allergy Mild Verified 07/16/18 04:55 Sulfa (Sulfonamide Allergy Mild Verified 07/16/18 04:55 Antibiotics) [SULFA (SULFONAMIDE ANTIBIOTICS)] tramadol [TRAMADOL] Allergy Mild Verified 07/16/18 04:55 [facility] History - Hepatitis A Screen Drug use history?: Yes High risk sexual behaviors?: No History of sexually transmitted infection?: No Currently employed?: No Childcare worker?: No Do you have indoor plumbing?: Yes Do you have electricity?: Yes Attestation statement:: This patient has been screened for Hepatitis A risk factors. Medical History: Reports:: Congestive Heart Failure, Deep Vein Thrombosis, Hypertension, MRSA Denies:: Cancer, Diabetes Mellitus Type 1, Diabetes Mellitus Type 2 Comment: Valvular heart disease/bacterial endocarditis Laterality Cases: Bilateral: Tonsillectomy Other Surgeries: Yes: Hysterectomy-Partial, Other (gallbladder removal) Amputation: No Fractures: No Comment: Cholecystectomy - Social History Smoking Status: Current every day smoker Tobacco Type: cigarettes # Packs/Day (cigarettes): 1 Alcohol Intake: never Substance Use Type: heroin Occupational Status: unemployed Housing: apartment - Psychiatric History Expresses thoughts of harming self/others: None Suicide Plan Description: No Plan Family Hx:: Hyperlipidemia, Hypertension ROS Obtained: Yes Systems reviewed as appropriate & no additional complaints - Constitutional Constitutional: Reports fever(s) - Eyes Eyes: Denies change in vision - ENT Ears, Nose, Mouth, and Throat: Denies difficulty swallowing - Cardiovascular Cardiovascular: Denies chest pain - Respiratory Respiratory: Yes cough, Yes dyspnea - Gastrointestinal Gastrointestingal: Reports: abdominal pain, vomiting - Musculoskeletal Musculoskeletal: Denies joint pain - Integumentary/Breasts Skin/Breast: Denies rash - Neurologic Neurologic: Denies dizziness Physical Exam - General General appearance: alert, in no apparent distress - Head Head exam: atraumatic - Eye Eye exam: Present: normal appearance - ENT ENT exam: Present: normal exam - Neck Neck exam: Present: normal inspection - Chest Chest inspection: Present: normal inspection - Respiratory Respiratory exam: Present: wheezes - Cardiovascular Cardiovascular exam: Present: regular rate, normal rhythm - Abdominal Exam Abdominal exam: Present: soft, tenderness. Absent: rebound - Extremities Exam Extremities exam: Present: normal inspection - Back Exam Back exam: Present: normal inspection - Neurological Exam Neurological exam: Present: alert, oriented X3 - Psychiatric Psychiatric exam: Present: normal affect, normal mood - Skin Skin exam: Present: warm, dry
[2018-12-23 08:58] LABS: Basophils % 0.2 % (0.1-2.0); Eosinophils % 0.2 % (0.1-12.0); Hemoglobin 11.5 g/dL (12.2-16.2); Lymphocytes # 0.4 K/mm3 (0.7-4.5); Lymphocytes % 6.3 % (10-50); Mean Corpuscular HGB Conc 32.8 g/dL (31.8-35.4); Mean Corpuscular Hemoglobin 27.6 pg (27.0-31.2); Mean Corpuscular Volume 84.3 fl (81-99); Mean Platelet Volume 8.2 fl (7.4-10.4); Monocytes # 0.3 K/mm3 (0.1-1.0); Monocytes % 4.3 % (1.7-9.3); Neutrophils # 5.7 K/mm3 (1.8-7.8); Neutrophils % 89.1 % (37.0-80.0); Platelet Count 111 K/mm3 (142-424); Red Blood Count 4.15 M/mm3 (4.20-5.40); Red Cell Distribution Width 15.3 % (11.5-17.5); White Blood Count 6.4 K/mm3 (4.8-10.8)
[2018-12-23 08:59] LABS: ABG Base Excess 0.9 mmol/L (-2.4-2.3); ABG HCO3 22.7 mmhg (22.0-26.0); ABG Oxygen Saturation 99 % (90-100); ABG PCO2 24.5 mmhg (35.0-45.0); ABG PO2 132.4 mmhg (80-100); ABG TCO2 23.5 mmhg (23-27)
[2018-12-23 09:03] LABS: Allen's Test Acceptable
[2018-12-23 09:04] LABS: ABG PH 7.59 mmol/L (7.35-7.45)
[2018-12-23 09:11] LABS: Alanine Aminotransferase 23 U/L (12-78); Albumin Level 3.1 gm/dL (3.4-5.0); Albumin/Globulin Ratio 0.8 (1.1-1.8); Alkaline Phosphatase 132 U/L (46-116); Anion Gap 15.7 mEq/L (5-15); Aspartate Amino Transferase 22 U/L (15-37); Bilirubin,Total 0.9 mg/dL (0.2-1.0); Blood Urea Nitrogen 8 mg/dL (7-18); Calcium 8.4 mg/dL (8.5-10.1); Carbon Dioxide 24 mmol/L (21.0-32.0); Chloride 101 mmol/L (98-107); Globulin 3.7 gm/dl (1.3-3.2); Glucose 150 mg/dL (74-106); Potassium 3.7 mmoL/L (3.5-5.1); Sodium 137 mmol/L (136-145); Total Protein,Serum 6.8 gm/dL (6.4-8.2)
[2018-12-23 09:15] LABS: Lymphocytes % 6 % (10-50); Monocytes % 2 % (2-9); Neutrophils % 90 % (42-76); RBC Morphology Normal; Total Cells Counted 100
[2018-12-23 09:23] LABS: Appearance,Urine SL CLOUDY (Clear); Bilirubin,Urine Negative (Negative); Blood, Urine 1+ (Negative); Color,Urine YELLOW (Yellow); Glucose,Urine (UA) Negative (Negative); Ketones,Urine Negative (Negative); Leukocyte Esterase,Urine Negative (Negative); Microscopic, Urine URINE MICROSCOPIC (MICROSCOPIC); Protein,Urine Negative (Negative)
[2018-12-23 09:30] LABS: Bacteria,Urine 2+ /lpf; WBC,Urine Occasional #/hpf (0-3)
[2018-12-23 09:32] LABS: Amphetamine/Metha Screen,Urine Negative ng/mL (<1000); Barbiturates Screen,Urine Negative ng/mL (<200); Benzodiazepines Screen,Urine Negative ng/mL (<200); Cannabinoid Screen,Urine Positive ng/mL (<50); Cocaine Screen,Urine Negative ng/mL (<300); Methadone Screen,Urine Negative ng/mL (<300); Opiate Screen,Urine Positive ng/mL (<300); Phencyclidine Screen,Urine Positive ng/mL (<25)
--- NOTE | 2018-12-23 16:13 | Pharmacy Consult Notes ---
[facility] Pharmacy VTE Monitoring - Patient Demographics Admission date: 12/23/18 Report Date: 12/23/18 Time: 16:13 Allergies/Adverse Reactions: Patient Allergies cefaclor [From CECLOR] Allergy (Mild, Verified 07/16/18 04:55) ibuprofen [IBUPROFEN] Allergy (Mild, Verified 07/16/18 04:55) Sulfa (Sulfonamide Antibiotics) [SULFA (SULFONAMIDE ANTIBIOTICS)] Allergy (Mild, Verified 07/16/18 04:55) tramadol [TRAMADOL] Allergy (Mild, Verified 07/16/18 04:55) Height: 1.73 m Weight: 99.79 kg Patient Problems: Current Active Problems Pulmonary emboli (Acute) Pneumonia (Acute) - VTE Risk Labs: VTE Related Lab Results Hgb 11.5 g/dL (12.2-16.2) L 12/23/18 08:25 Hct 35.0 % (37.0-47.0) L 12/23/18 08:25 Plt Count 111 K/mm3 (142-424) L 12/23/18 08:25 BUN 8 mg/dL (7-18) 12/23/18 08:25 Creatinine 0.93 mg/dL (0.55-1.02) 12/23/18 08:25 Estimated Creat Clear 138 mL/min (50-200) 12/23/18 08:25 - Prophylaxis VTE Prophylaxis Ordered?: Yes Types of VTE Prophylaxis: TEDS Knee High Location of Applied Device: Bilateral Lower Extremeties - VTE Diagnosis Confirmed Treatment or plan recommended: Continue Current Treatment
--- NOTE | 2018-12-23 18:58 | History & Physical Report ---
*Admission Date: 12/23/18 *Chief complaint: Shortness of breath, nausea, vomiting *History of present illness: Ms. Garcia is a pleasant 33-year-old female who presented to the ER via ambulance due to worsening shortness of breath over the past 2-3 days. 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 She continues to take fluconazole as a preventative medication. Additionally she reports prolonged history of IV drug abuse which led to her endocarditis and contraction of HCV. She denies any current IV drug use however does report that she has been using heroin, snorting it, and smoking marijuana more recently until beginning to feel bad several days ago. She reports that she developed nausea, vomiting, lower abd pain, lower back pain, sob x several days. pt states she has been unable "to keep anything down". Noted to have fever over the past 1-2 days with temperature up to 103 noted by EMS today. She denies diarrhea or sick contacts. Lab work in the ER positive for elevated d-dimer, respiratory alkalosis, and CT PE positive for pulmonary emboli. Additionally patient noted to have infiltrate concerning for pneumonia. Treated with breathing treatment which improved some of her shortness of breath. Initiated on 1 mg/kg Lovenox. Admitted for further treatment of her PEs and pneumonia. At this time patient reports lower extremity edema that has been present for approximately a week. States nausea is stable. Complains of discomfort in her legs with her history of restless leg. Also just general soreness. Denies chest pain, productive cough, confusion. Of note, reports history of previous DVTs and PEs necessitating daily Lovenox injections, states she has not been on Lovenox for approximately 9 months. [facility] History I have reviewed the patient's past medical history: Yes Medical History: Reports:: Congestive Heart Failure, Deep Vein Thrombosis, Hypertension, Internal Pacemaker (put in and removed), Valvular Heart Disease Denies:: Cancer, Diabetes Mellitus Type 1, Diabetes Mellitus Type 2, MRSA *Have you ever received a pneumonia vaccine?: Yes *Have you received a flu vaccine this season?: Yes Other Medical History: Reports: Arthritis Laterality Cases: Bilateral: Tonsillectomy Other Surgeries: Yes: Hysterectomy-Partial, Pacemaker (put in and removed), Other Valve Replacement (tricuspid), Other (gallbladder removal) Amputation: No Fractures: No - *Social History Educational Level: Attended High School Smoking Status: Current every day smoker Tobacco Type: cigarettes # Packs/Day (cigarettes): 1 Alcohol Intake: never Substance Use Type: heroin *Occupational Status:: unemployed, disabled Housing: house Household Members: children, other *Travel in the last 8 weeks: None - Psychiatric History Expresses thoughts of harming self/others: None Suicide Plan Description: No Plan Family Hx:: Hyperlipidemia, Hypertension Review of Systems - Review of Systems Review of systems:: pertinent systems reviewed and negative unless documented below - *Neurologic Denies dizziness Meds Home Medications Medication Instructions Recorded Confirmed Type Fluconazole [Diflucan] 400 mg PO DAILY 12/23/18 12/23/18 History Allergies Allergy/AdvReac Type Severity Reaction Status Date / Time cefaclor [From CECLOR] Allergy Mild Verified 07/16/18 04:55 ibuprofen [IBUPROFEN] Allergy Mild Verified 07/16/18 04:55 Sulfa (Sulfonamide Allergy Mild Verified 07/16/18 04:55 Antibiotics) [SULFA (SULFONAMIDE ANTIBIOTICS)] tramadol [TRAMADOL] Allergy Mild Verified 07/16/18 04:55 Exam Vital signs and Labs for Last 24 Hours: Temp Pulse Resp BP Pulse Ox 98.6 F 68 16 113/67 96 12/23/18 16:32 12/23/18 18:00 12/23/18 18:00 12/23/18 18:00 12/23/18 18:00 Laboratory Results - last 24 hr 12/23/18 08:25: WBC 6.4, RBC 4.15 L, Hgb 11.5 L, Hct 35.0 L, MCV 84.3, MCH 27.6, MCHC 32.8, RDW 15.3, Plt Count 111 L, MPV 8.2, Neut % (Auto) 89.1 H, Lymph % (Auto) 6.3 L, [place] % (Auto) 4.3, Eos % (Auto) 0.2, Baso % (Auto) 0.2, Neut # (Auto) 5.7, Lymph # (Auto) 0.4 L, [place] # (Auto) 0.3, Eos # (Auto) 0.0, Baso # (Auto) 0.0, Total Counted 100, Neutrophils % (Manual) 90 H, Band Neutrophils % 2.0, Lymphocytes % (Manual) 6 L, Monocytes % (Manual) 2, Platelet Estimate Slight decrease, RBC Morphology Normal 12/23/18 08:25: Sodium 137, Potassium 3.7, Chloride 101, Carbon Dioxide 24, Anion Gap 15.7 H, BUN 8, Creatinine 0.93, Estimated Creat Clear 138, Estimated GFR 70, Est GFR ( Amer) 85, Glucose 150 H, Calcium 8.4 L, Total Bilirubin 0.9, AST 22, ALT 23, Alkaline Phosphatase 132 H, Troponin I < 0.02, Total Protein 6.8, Albumin 3.1 L, Globulin 3.7 H, Albumin/Globulin Ratio 0.8 L 12/23/18 08:25: Lactate 2.2 H 12/23/18 08:25: Urine Color Yellow, Urine Appearance Sl cloudy, Urine pH 7.0, Ur Specific [place] 1.010, Urine Protein Negative, Urine Glucose (UA) Negative, Urine Ketones Negative, Urine Blood 1+, Urine Nitrate Negative, Urine Bilirubin Negative, Urine Urobilinogen 1.0, Ur Leukocyte Esterase Negative, Urine RBC 3-5, Urine WBC Occasional, Ur Squamous Epith Cells 5-10, Urine Bacteria 2+ 12/23/18 08:25: Lipase 85 12/23/18 08:25: Serum HCG, Qual Negative 12/23/18 08:25: D-Dimer 1190 H* 12/23/18 08:25: Specimen Source Left radial, O2 % 3.5 lpm nc, ABG pH 7.59 H*, ABG pCO2 24.5 L, ABG pO2 132.4 H, ABG HCO3 22.7, ABG Total CO2 23.5, ABG O2 Saturation 99, ABG Base Excess 0.9, Donovan Test Acceptable 12/23/18 09:12: Urine Opiates Screen Positive H, Urine Methadone Screen Negative, Ur Barbituates Screen Negative, Ur Phencyclidine Scrn Positive H, Ur Amphetamines Screen Negative, U Benzodiazepines Scrn Negative, Urine Cocaine Screen Negative, U Marijuana (THC) Screen Positive H 12/23/18 13:02: Lactate 0.7 I & O for Last 24 hours: Intake & Output 12/20/18 12/21/18 12/22/18 12/23/18 23:59 23:59 23:59 23:59 Intake Total 540 / 540 Balance 540 / 540 Weight 99.79 kg - Constitutional no acute distress, obese - *Routine HEENT Exam Head: Present: normocephalic Eye: Present: EOMI, PERRL ENT: Present: mucous membranes moist Comments: Edentulous - *Routine Neck Exam Present: supple, full ROM. Absent: JVD - *Routine Respiratory Exam Present: CTA bilaterally. Absent: accessory muscle use - *Routine Cardiovascular Exam Present: RRR, Normal S1, Normal S2. Absent: murmur - *Routine Abdominal Exam Present: soft, normoactive bowel sounds. Absent: tenderness, rebound - *Routine Rectal Exam Patient deferred: visual exam - *Routine Exam Patient deferred: external exam - *Routine Extremities Exam Present: edema. Absent: cyanosis, clubbing Comments: PEYTON hose in place - *Routine Skin Exam Present: warm. Absent: rash - *Routine Neurological Exam Present: alert, oriented X3, CN II-XII intact. Absent: altered mental status - Routine Psychiatric Exam Present: normal affect, cooperative Assessment and Plan (1) Pneumonia Current visit: Yes Status: Acute Qualifiers: Pneumonia type: due to unspecified organism Laterality: unspecified laterality Lung location: unspecified part of lung Qualified Code(s): J18.9 - Pneumonia, unspecified organism Category: Medical Code(s): J18.9 - Pneumonia, unspecified organism On Levaquin. Plan for 10-day course of antibiotics. -Goal sats greater than 92 while awake, greater than 88 while asleep (2) Pulmonary emboli Current visit: Yes Status: Acute Qualifiers: Pulmonary embolism type: unspecified Chronicity: unspecified Acute cor pulmonale presence: without acute cor pulmonale Qualified Code(s): I26.99 - Other pulmonary embolism without acute cor pulmonale Category: Medical Code(s): I26.99 - Other pulmonary embolism without acute cor pulmonale Suspect acute on chronic given left lower extremity edema and history of DVTs and PEs in the past. Initiated on Lovenox, 1 mg/kg every 12 hrs -Plan to transition to oral anticoagulant in the morning for continued usage at time of discharge. Will need to follow with hematology due to likely lifelong use given previous history of DVTs. -Lower extremity duplex pending to assess for DVTs (3) Drug abuse and dependence Current visit: No Status: Acute Category: Medical Code(s): F19.20 - Other psychoactive substance dependence, uncomplicated Complicates care. Patient's UDS positive for opiates, THC, PCP. Patient admits to drug use. Monitor for withdrawal symptoms (4) Hepatitis C infection Current visit: No Status: Acute Qualifiers: Viral hepatitis chronicity: chronic Category: Medical Code(s): B19.20 - Unspecified viral hepatitis C without hepatic coma No active treatment at this time. Standard PPE precautions (5) Hx of tricuspid valve replacement Current visit: No Status: Acute Category: Surgical Code(s): Z95.2 - Presence of prosthetic heart valve Status post valve replacement in 2016. Will obtain echo to assess heart function and monitor for right heart strain. Additionally restarted patient's home fluconazole as prophylactic medication for her fungal endocarditis. Continue to monitor on telemetry given multiple QT prolonging medications. EKG ordered. (6) Obesity (BMI 30-39.9) Current visit: No Status: Acute Category: Medical Code(s): E66.9 - Obesity, unspecified Complicates all aspects of care
[2018-12-23 20:22] LABS: ABG HCO3 25.3 mmhg (22.0-26.0); ABG Oxygen Saturation 62 % (90-100); ABG PCO2 44.9 mmhg (35.0-45.0); ABG PH 7.37 mmol/L (7.35-7.45); ABG TCO2 26.7 mmhg (23-27)
[2018-12-23 20:53] LABS: ABG PO2 34.9 mmhg (80-100); Allen's Test Acceptable; Oxygen room air %
[2018-12-24 05:37] LABS: Basophils % 0.6 % (0.1-2.0); Eosinophils # 0.1 K/mm3 (0.0-0.4); Eosinophils % 2.3 % (0.1-12.0); Hematocrit 35.4 % (37.0-47.0); Hemoglobin 11.2 g/dL (12.2-16.2); Lymphocytes # 1.1 K/mm3 (0.7-4.5); Mean Corpuscular HGB Conc 31.7 g/dL (31.8-35.4); Mean Corpuscular Hemoglobin 27.6 pg (27.0-31.2); Mean Corpuscular Volume 87.1 fl (81-99); Mean Platelet Volume 8.7 fl (7.4-10.4); Monocytes # 0.3 K/mm3 (0.1-1.0); Monocytes % 8.5 % (1.7-9.3); Neutrophils % 56.7 % (37.0-80.0); Platelet Count 81 K/mm3 (142-424); Red Blood Count 4.06 M/mm3 (4.20-5.40); Red Cell Distribution Width 15.4 % (11.5-17.5); White Blood Count 3.5 K/mm3 (4.8-10.8)
[2018-12-24 05:49] LABS: Albumin/Globulin Ratio 0.8 (1.1-1.8); Anion Gap 11.2 mEq/L (5-15); Bilirubin,Total 0.5 mg/dL (0.2-1.0); Calcium 8.4 mg/dL (8.5-10.1); Globulin 3.7 gm/dl (1.3-3.2); Potassium 4.2 mmoL/L (3.5-5.1); Total Protein,Serum 6.7 gm/dL (6.4-8.2)
--- NOTE | 2018-12-24 08:07 | Non-Invasive Vascular Report ---
"Venous Exam Indications: 782.3 Edema. IMPRESSIONS 1. There is no evidence of significant Reflux. 2. No evidence of deep or superficial vein thrombosis involving the left lower extremity 3. No evidence of deep or superficial vein thrombosis involving the right lower extremity History: PMH: Deep vein thrombosis. Pulmonary embolism Complete lower extremity venous duplex evaluation. Doppler flow study including spectral analysis, color and madsen scale imaging. Location: Bedside. Patient status: Inpatient. Tables: Venous flow and imaging: + +-------+ + |Location |Overall|Flow properties | + +-------+ + |Right common femoral |Patent |Normal phasicity; spontaneous; | | | |normal augmentation; compressible| + +-------+ + |Right saphenofemoral junction|Patent |Compressible | + +-------+ + |Right profunda femoral |Patent |Compressible | + +-------+ + |Right femoral |Patent |Normal phasicity; spontaneous; | | | |normal augmentation; | | | |compressible; no reflux | + +-------+ + |Right greater saphenous |Patent |Normal phasicity; spontaneous; | | | |normal augmentation; compressible| + +-------+ + |Right popliteal |Patent |Normal phasicity; spontaneous; | | | |normal augmentation; compressible| + +-------+ + |Right posterior tibial |Patent |Compressible | + +-------+ + |Right peroneal |Patent |Compressible | + +-------+ + |Right gastrocnemius |Patent |Compressible | + +-------+ + |Right soleal |Patent |Compressible | + +-------+ + |Left common femoral |Patent |Normal phasicity; spontaneous; | | | |normal augmentation; compressible| + +-------+ + |Left saphenofemoral junction |Patent |Compressible | + +-------+ + |Left profunda femoral |Patent |Compressible | + +-------+ + |Left femoral |Patent |Normal phasicity; spontaneous; | | | |normal augmentation; compressible| + +-------+ + |Left greater saphenous |Patent |Normal phasicity; spontaneous; | | | |normal augmentation; compressible| + +-------+ + |Left popliteal |Patent |Normal phasicity; spontaneous; | | | |normal augmentation; compressible| + +-------+ + |Left posterior tibial |Patent |Compressible | + +-------+ + |Left peroneal |Patent |Compressible | + +-------+ + |Left gastrocnemius |Patent |Compressible | + +-------+ + |Left soleal |Patent |Compressible | + +-------+ + Electronically signed by: Cara Elizabeth [id number]"
--- NOTE | 2018-12-24 08:22 | Discharge Summary ---
General - General Admission date:: 12/23/18 Discharge date: 12/24/18 HPI HPI: Ms. Garcia is a pleasant 33-year-old female who presented to the ER via ambulance due to worsening shortness of breath over the past 2-3 days. 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 She continues to take fluconazole as a preventative medication. Additionally she reports prolonged history of IV drug abuse which led to her endocarditis and contraction of HCV. She denies any current IV drug use however does report that she has been using heroin, snorting it, and smoking marijuana more recently until beginning to feel bad several days ago. She reports that she developed nausea, vomiting, lower abd pain, lower back pain, sob x several days. pt states she has been unable "to keep anything down". Noted to have fever over the past 1-2 days with temperature up to 103 noted by EMS today. She denies diarrhea or sick contacts. Lab work in the ER positive for elevated d-dimer, respiratory alkalosis, and CT PE positive for pulmonary emboli. Additionally patient noted to have infiltrate concerning for pneumonia. Treated with breathing treatment which improved some of her shortness of breath. Initiated on 1 mg/kg Lovenox. Admitted for further treatment of her PEs and pneumonia. At this time patient reports lower extremity edema that has been present for approximately a week. States nausea is stable. Complains of discomfort in her legs with her history of restless leg. Also just general soreness. Denies chest pain, productive cough, confusion. Of note, reports history of previous DVTs and PEs necessitating daily Lovenox injections, states she has not been on Lovenox for approximately 9 months. Hospital Course Hospital Course: Ms. Garcia was admitted for concern for pulmonary emboli and mild pneumonia. Initiated on Lovenox. Remained hemodynamically stable overnight. Wore oxygen for comfort however maintained oxygen saturations in the high 90s on room air. Tolerating regular diet, Nausea treated with phenergan x 1. Otherwise did well overnight with no chest pain, diarrhea, fevers. Plan to complete antibiotics as outpatient, transition to Eliquis PO BID for PEs. Will need to follow-up with Hematology as an outpatient for second episode of DVT/PE. Additionally, will have patient follow-up with Cardiology due to echo finding of mild increase in right sided heart pressures. Formal read of echo pending at time of DC. Objective Vital signs: Temp Pulse Resp BP Pulse Ox 99.0 F 71 18 124/85 98 12/24/18 08:00 12/24/18 08:00 12/24/18 08:00 12/24/18 08:00 12/24/18 08:00 Narrative: - Constitutional no acute distress, obese - *Routine HEENT Exam Head: Present: normocephalic Eye: Present: EOMI, PERRL ENT: Present: mucous membranes moist Comments: Edentulous - *Routine Neck Exam Present: supple, full ROM. Absent: JVD - *Routine Respiratory Exam Present: CTA bilaterally. Absent: accessory muscle use - *Routine Cardiovascular Exam Present: RRR, Normal S1, Normal S2. Absent: murmur - *Routine Abdominal Exam Present: soft, normoactive bowel sounds. Absent: tenderness, rebound - *Routine Rectal Exam Patient deferred: visual exam - *Routine Exam Patient deferred: external exam - *Routine Extremities Exam Present: edema. Absent: cyanosis, clubbing Comments: PEYTON hose in place - *Routine Skin Exam Present: warm. Absent: rash - *Routine Neurological Exam Present: alert, oriented X3, CN II-XII intact. Absent: altered mental status - Routine Psychiatric Exam Present: normal affect, cooperative Results Labs on day of discharge: Labs from last 24 hours 12/24/18 12/24/18 12/23/18 05:26 05:26 18:51 WBC 3.5 L D RBC 4.06 L Hgb 11.2 L Hct 35.4 L MCV 87.1 MCH 27.6 MCHC 31.7 L RDW 15.4 Plt Count 81 L D MPV 8.7 Neut % (Auto) 56.7 Lymph % (Auto) 32.0 [place] % (Auto) 8.5 Eos % (Auto) 2.3 Baso % (Auto) 0.6 Neut # (Auto) 2.0 Lymph # (Auto) 1.1 [place] # (Auto) 0.3 Eos # (Auto) 0.1 Baso # (Auto) 0.0 Total Counted Neutrophils % (Manual) Band Neutrophils % Lymphocytes % (Manual) Monocytes % (Manual) Platelet Estimate RBC Morphology D-Dimer Specimen Source Right radial O2 % room air ABG pH 7.37 ABG pCO2 44.9 ABG pO2 34.9 L ABG HCO3 25.3 ABG Total CO2 26.7 ABG O2 Saturation 62 L* ABG Base Excess 0.0 Donovan Test Acceptable Sodium 141 Potassium 4.2 Chloride 105 Carbon Dioxide 29 D Anion Gap 11.2 BUN 10 Creatinine 0.80 Estimated Creat Clear 161 Estimated GFR 84 Est GFR ( Amer) 101 Glucose 95 D Lactate Calcium 8.4 L Total Bilirubin 0.5 AST 36 D ALT 25 Alkaline Phosphatase 123 H Troponin I Total Protein 6.7 Albumin 3.0 L Globulin 3.7 H Albumin/Globulin Ratio 0.8 L Lipase Serum HCG, Qual Urine Color Urine Appearance Urine pH Ur Specific [place] Urine Protein Urine Glucose (UA) Urine Ketones Urine Blood Urine Nitrate Urine Bilirubin Urine Urobilinogen Ur Leukocyte Esterase Urine RBC Urine WBC Ur Squamous Epith Cells Urine Bacteria Urine Opiates Screen Urine Methadone Screen Ur Barbituates Screen Ur Phencyclidine Scrn Ur Amphetamines Screen U Benzodiazepines Scrn Urine Cocaine Screen U Marijuana (THC) Screen 12/23/18 12/23/18 12/23/18 13:02 09:12 08:25 WBC RBC Hgb Hct MCV MCH MCHC RDW Plt Count MPV Neut % (Auto) Lymph % (Auto) [place] % (Auto) Eos % (Auto) Baso % (Auto) Neut # (Auto) Lymph # (Auto) [place] # (Auto) Eos # (Auto) Baso # (Auto) Total Counted Neutrophils % (Manual) Band Neutrophils % Lymphocytes % (Manual) Monocytes % (Manual) Platelet Estimate RBC Morphology D-Dimer Specimen Source Left radial O2 % 3.5 lpm nc ABG pH 7.59 H* ABG pCO2 24.5 L ABG pO2 132.4 H ABG HCO3 22.7 ABG Total CO2 23.5 ABG O2 Saturation 99 ABG Base Excess 0.9 Donovan Test Acceptable Sodium Potassium Chloride Carbon Dioxide Anion Gap BUN Creatinine Estimated Creat Clear Estimated GFR Est GFR ( Amer) Glucose Lactate 0.7 Calcium Total Bilirubin AST ALT Alkaline Phosphatase Troponin I Total Protein Albumin Globulin Albumin/Globulin Ratio Lipase Serum HCG, Qual Urine Color Urine Appearance Urine pH Ur Specific [place] Urine Protein Urine Glucose (UA) Urine Ketones Urine Blood Urine Nitrate Urine Bilirubin Urine Urobilinogen Ur Leukocyte Esterase Urine RBC Urine WBC Ur Squamous Epith Cells Urine Bacteria Urine Opiates Screen Positive H Urine Methadone Screen Negative Ur Barbituates Screen Negative Ur Phencyclidine Scrn Positive H Ur Amphetamines Screen Negative U Benzodiazepines Scrn Negative Urine Cocaine Screen Negative U Marijuana (THC) Screen Positive H 12/23/18 12/23/18 12/23/18 08:25 08:25 08:25 WBC RBC Hgb Hct MCV MCH MCHC RDW Plt Count MPV Neut % (Auto) Lymph % (Auto) [place] % (Auto) Eos % (Auto) Baso % (Auto) Neut # (Auto) Lymph # (Auto) [place] # (Auto) Eos # (Auto) Baso # (Auto) Total Counted Neutrophils % (Manual) Band Neutrophils % Lymphocytes % (Manual) Monocytes % (Manual) Platelet Estimate RBC Morphology D-Dimer 1190 H* Specimen Source O2 % ABG pH ABG pCO2 ABG pO2 ABG HCO3 ABG Total CO2 ABG O2 Saturation ABG Base Excess [place] Test Sodium Potassium Chloride Carbon Dioxide Anion Gap BUN Creatinine Estimated Creat Clear Estimated GFR Est GFR ( Amer) Glucose Lactate Calcium Total Bilirubin AST ALT Alkaline Phosphatase Troponin I Total Protein Albumin Globulin Albumin/Globulin Ratio Lipase 85 Serum HCG, Qual Negative Urine Color Urine Appearance Urine pH Ur Specific [place] Urine Protein Urine Glucose (UA) Urine Ketones Urine Blood Urine Nitrate Urine Bilirubin Urine Urobilinogen Ur Leukocyte Esterase Urine RBC Urine WBC Ur Squamous Epith Cells Urine Bacteria Urine Opiates Screen Urine Methadone Screen Ur Barbituates Screen Ur Phencyclidine Scrn Ur Amphetamines Screen U Benzodiazepines Scrn Urine Cocaine Screen U Marijuana (THC) Screen 12/23/18 12/23/18 12/23/18 08:25 08:25 08:25 WBC RBC Hgb Hct MCV MCH MCHC RDW Plt Count MPV Neut % (Auto) Lymph % (Auto) [place] % (Auto) Eos % (Auto) Baso % (Auto) Neut # (Auto) Lymph # (Auto) [place] # (Auto) Eos # (Auto) Baso # (Auto) Total Counted Neutrophils % (Manual) Band Neutrophils % Lymphocytes % (Manual) Monocytes % (Manual) Platelet Estimate RBC Morphology D-Dimer Specimen Source O2 % ABG pH ABG pCO2 ABG pO2 ABG HCO3 ABG Total CO2 ABG O2 Saturation ABG Base Excess Donovan Test Sodium 137 Potassium 3.7 Chloride 101 Carbon Dioxide 24 Anion Gap 15.7 H BUN 8 Creatinine 0.93 Estimated Creat Clear 138 Estimated GFR 70 Est GFR ( Amer) 85 Glucose 150 H Lactate 2.2 H Calcium 8.4 L Total Bilirubin 0.9 AST 22 ALT 23 Alkaline Phosphatase 132 H Troponin I < 0.02 Total Protein 6.8 Albumin 3.1 L Globulin 3.7 H Albumin/Globulin Ratio 0.8 L Lipase Serum HCG, Qual Urine Color Yellow Urine Appearance Sl cloudy Urine pH 7.0 Ur Specific [place] 1.010 Urine Protein Negative Urine Glucose (UA) Negative Urine Ketones Negative Urine Blood 1+ Urine Nitrate Negative Urine Bilirubin Negative Urine Urobilinogen 1.0 Ur Leukocyte Esterase Negative Urine RBC 3-5 Urine WBC Occasional Ur Squamous Epith Cells 5-10 Urine Bacteria 2+ Urine Opiates Screen Urine Methadone Screen Ur Barbituates Screen Ur Phencyclidine Scrn Ur Amphetamines Screen U Benzodiazepines Scrn Urine Cocaine Screen U Marijuana (THC) Screen 12/23/18 08:25 WBC 6.4 RBC 4.15 L Hgb 11.5 L Hct 35.0 L MCV 84.3 MCH 27.6 MCHC 32.8 RDW 15.3 Plt Count 111 L MPV 8.2 Neut % (Auto) 89.1 H Lymph % (Auto) 6.3 L [place] % (Auto) 4.3 Eos % (Auto) 0.2 Baso % (Auto) 0.2 Neut # (Auto) 5.7 Lymph # (Auto) 0.4 L [place] # (Auto) 0.3 Eos # (Auto) 0.0 Baso # (Auto) 0.0 Total Counted 100 Neutrophils % (Manual) 90 H Band Neutrophils % 2.0 Lymphocytes % (Manual) 6 L Monocytes % (Manual) 2 Platelet Estimate Slight decrease RBC Morphology Normal D-Dimer Specimen Source O2 % ABG pH ABG pCO2 ABG pO2 ABG HCO3 ABG Total CO2 ABG O2 Saturation ABG Base Excess [place] Test Sodium Potassium Chloride Carbon Dioxide Anion Gap BUN Creatinine Estimated Creat Clear Estimated GFR Est GFR ( Amer) Glucose Lactate Calcium Total Bilirubin AST ALT Alkaline Phosphatase Troponin I Total Protein Albumin Globulin Albumin/Globulin Ratio Lipase Serum HCG, Qual Urine Color Urine Appearance Urine pH Ur Specific [place] Urine Protein Urine Glucose (UA) Urine Ketones Urine Blood Urine Nitrate Urine Bilirubin Urine Urobilinogen Ur Leukocyte Esterase Urine RBC Urine WBC Ur Squamous Epith Cells Urine Bacteria Urine Opiates Screen Urine Methadone Screen Ur Barbituates Screen Ur Phencyclidine Scrn Ur Amphetamines Screen U Benzodiazepines Scrn Urine Cocaine Screen U Marijuana (THC) Screen DS: Diagnosis - Discharge Diagnosis (1) Pneumonia Status: Acute (2) Pulmonary emboli Status: Acute (3) Drug abuse and dependence Status: Acute (4) Hepatitis C infection Status: Acute (5) Hx of tricuspid valve replacement Status: Acute (6) Obesity (BMI 30-39.9) Status: Acute Discharge Plan - Patient Discharge Instructions ACTIVITY: Continue current activity DIET: continue same diet Patient Instructions: DI for Pneumonia -- Adult, DI for Pulmonary Embolism, DI for Hypoxia - Follow up Plan Follow up with: Manolo Perez MD [Staff Physician] - 1 week Mari Greenfield MD [Staff Physician] - 2 weeks Supa Kimball MD [Staff Physician] - 2 weeks Disposition: Home, Self-Jail Medications: Home Medications Medication Instructions Recorded Confirmed Type Fluconazole [Diflucan] 400 mg PO DAILY 12/23/18 12/23/18 History Apixaban [Eliquis] 5 mg PO BID 30 Days #60 tablet 12/24/18 Rx Promethazine HCl [Phenergan 25mg 25 mg PO Q6HP PRN 3 Days #12 tablet 12/24/18 Rx tab] levoFLOXacin [Levaquin 500mg 500 mg PO DAILY #7 tab 12/24/18 Rx tab] Prescriptions/Medication Reconciliation: New Promethazine HCl [Phenergan 25mg tab] 25 mg PO Q6HP PRN 3 Days #12 tablet PRN Reason: Nausea And Vomiting Continue Fluconazole [Diflucan] 400 mg PO DAILY
--- NOTE | 2018-12-24 13:56 | Cardiology Report ---
PROCEDURE: 2-D M-mode and color Doppler study INDICATIONS FOR THE TEST: Chest pain COPD Heart Murmur Tobacco Smoking Palpitations Fatigue Syncope Edema Hypertension Diabetes Mellitus Rheumatic Fever SOBXDOE ObesityXHyperlipidemia Family History HD Additional History PE,TVR PORCINE,H/O IV DRUG USE PATIENT INFORMATION HEIGHT: 68 WEIGHT:220 GENDER: Female B/P:110/70 2-D/M-MODE INTERPRETATION: 2-D MEASUREMENTS OBSERVED VALUES IN CMS Right Ventricular Dimension (RVDd) 2.1 Interventricular Septum (Thickness)(IVsd) 1.0 Left Ventricular Internal Dimensions(LVIDd) 5.2 Left Ventricular Posterior Wall (Thickness)(LVPWd) .9 Aortic Root 3.0 Aortic Cusp Separation 1.9 Left Atrial Dimensions (LAD) 4.2 2D 1. Left atrium is mildly enlarged, left ventricle is normal size, there is no concentric left ventricular hypertrophy, visually estimated ejection fraction of 55% with no regional wall motion abnormality, there is abnormal septal motion. 2. The right atrium and right ventricle are moderately enlarged, contractility of the right ventricle is present. 3. The aortic valve is minimally thickened and fibrosed. 4. The mitral valve is grossly normal. 5. There is mild prosthetic valve noted in the tricuspid position. 6. The pulmonic valve is poorly present. 7. No significant pericardial effusion noted. DOPPLER INTERROGATION: 1. The aortic outflow velocities within normal range, there is no aortic stenosis aortic insufficiency. 2. The mitral inflow velocities within normal range, there is no mitral stenosis, there is mild mitral regurgitation. 3. The tricuspid inflow velocities mildly increased, does not represent any significant tricuspid inflow obstruction. There is mild tricuspid regurgitation noted, calculated right ventricular systolic pressure is 63 mmHg consistent with moderate pulmonary hypertension, inferior vena cava is dilated without significant instability collapse. 4. The diastolic parameters are inconclusive. CONCLUSION: 1. Biatrial enlargement, normal left ventricular size, visually estimated ejection fraction 55% with no regional wall motion abnormality, there is abnormal septal motion, diastolic parameters are inconclusive. 2. Moderately enlarged right ventricle with preserved contractility. 3. Bioprosthetic valve in the tricuspid position without significant tricuspid inflow obstruction, there is mild tricuspid regurgitation noted, calculated right ventricular systolic pressure 63 mmHg consistent with moderate pulmonary hypertension. Inferior vena cava is dilated without significant inspiratory collapse. 4. No significant pericardial effusion noted.
== END 2018-12-24 13:00 | disposition home or self-care (01) ==
LOC: ER 08:18 → 2ND 15:51 → OBSVTOIN 16:33 → INTOOBSV 16:33 → 2ND 16:34
PROVIDERS: ADMIT Internal Medicine Adolescent Medicine; ATTEND Internal Medicine Adolescent Medicine
CPT/HCPCS: 36415; 71020; 71046; 71275; 74177; 80053; 80305; 81001; 82803; 83605; 83690; 84484; 84703; 85007; 85025; 85378; 87040; 87086; 93005; 93306; 93970; 96365; 96367; 96372; 96375; 96376; 99285; G0378; J1956; J2405; Q9967

== ENCOUNTER 2020-02-12 12:49 | Emergency (ER) | payer OTHER, SELFPAY ==
[2020-02-12 13:14] VITALS: BP 159/74; PULSE 91; RESP 16; TEMP 36.6; O2SAT 98; BMI 31.1
--- NOTE | 2020-02-12 13:27 | HMH.EDGENADL ---
ED Disposition Clinical Impression: Hives UTI (urinary tract infection) Qualifiers: Urinary tract infection type: acute cystitis Hematuria presence: with hematuria Qualified Code(s): N30.01 - Acute cystitis with hematuria Disposition: Home, Self-Care Condition on Discharge: Good Instructions: DI for Urinary Tract Infection (UTI), DI for Hives Additional Instructions: Take Zyrtec daily and you may use Benadryl 25 mg every 6 hours as needed for hives. Follow-up with your primary care provider in 2 to 3 days. You may want to follow-up with an material movers to identify the source of your allergy. Return to the emergency department for vomiting, fever, respiratory distress. Prescriptions: Nitrofurantoin Monohyd/M-Cryst [Macrobid 100 mg Capsule] 100 mg PO BID #14 cap Prescription Printed Referrals: Gigi Blank MD [Primary Care Provider] - 3 days - Critical Care Critical Care Time: No Attestation: On 02/12/20, the high probability of a clinically significant, sudden or life threatening deterioration of the following system(s) required my full and direct attention, intervention and personal management. The time I documented below is in addition to time spent performing reported procedures but includes the following listed in this critical care notation. Medical Decision Making - Medical Records Medical records reviewed: Yes: I reviewed the patient's medical records. - Talon Inquiry Pt receiving controlled substance: No Vital Signs: 02/12/20 13:14 Temperature 98 F Temperature Source Oral Pulse Rate [Left Radial] 91 H Respiratory Rate 16 Blood Pressure [Right Arm] 159/74 H Blood Pressure Mean [Right Arm] 102 Blood Pressure Position [Right Arm] Sitting 02 Sat by Pulse Oximetry 98 Oxygen Delivery Method Room Air - Lab Data Lab Results 02/12/20 13:23: Urine Color Yellow, Urine Appearance Cloudy, Urine pH 6.0, Ur Specific [place] >= 1.030, Urine Protein Trace, Urine Glucose (UA) Negative, Urine Ketones Negative, Urine Blood Trace-i, Urine Nitrate Negative, Urine Bilirubin Negative, Urine Urobilinogen 0.2, Ur Leukocyte Esterase 2+ A, Urine RBC Occasional, Urine WBC 50-100, Ur Squamous Epith Cells 20-50, Amorphous Sediment 2+, Urine Bacteria 3+ Orders (Tests/Meds): ED MEDICATIONS Discontinued Medications Generic Name Dose Route Start Last Admin Trade Name Freq PRN Reason Stop Dose Admin Dexamethasone 10 mg 02/12/20 13:33 Decadron 4mg Tablet PO 02/12/20 13:34 ONCE ONE Nitrofurantoin Macrocrystals 100 mg 02/12/20 13:45 Macrodantin 100mg Capsule PO 02/12/20 13:46 ONCE ONE ORDERS Category Date Time Status Urine Culture Stat Micro 02/12/20 13:23 Received Medical Decision Narrative: Patient with urinary tract infection, likely the source of her low back pain radiating to the front. She has no flank pain or fever that would suggest pyelonephritis or obstructive uropathy with infection. Given Macrobid here and discharged home with prescription for the same. Given 10 mg of Decadron here to help with her hives. Advised taking Zyrtec daily and continuing Benadryl every 6 hours as needed for resolution of hives. Advised following up with an material movers. She has no respiratory distress, vomiting that would suggest anaphylactic process. General Adult HPI - General Chief complaint: PAIN Stated complaint: pain lower back, eye pain, hives all over body Time Seen by Provider: 02/12/20 13:27 Mode of Arrival: Ambulatory Limitations: No Limitations Description of Symptoms (Recalled from ER Triage Doc. by RN): to ed per pvt car with multiple c/o pt c/o hives, itching x 2 days also c/o back pain and painful urination. pt also c/o swelling feet and ankles pt c/o rt eye with redness, swelling, drainage. - History of Present Illness HPI narrative: This is a 34-year-old female with a past medical history significant for congestive heart failure and valvular heart disease fr
[2020-02-12 13:30] LABS: Microscopic, Urine URINE MICROSCOPIC (MICROSCOPIC)
[2020-02-12 13:34] LABS: Appearance,Urine CLOUDY (Clear); Bilirubin,Urine Negative (Negative); Blood, Urine TRACE-I (Negative); Color,Urine YELLOW (Yellow); Glucose,Urine (UA) Negative (Negative); Ketones,Urine Negative (Negative); Leukocyte Esterase,Urine 2+ (Negative); Nitrate,Urine Negative (Negative); Protein,Urine TRACE (Negative); Specific Gravity, Urine >= 1.030 (1.005-1.030); Urobilinogen,Urine 0.2 EU/dl (0.2)
[2020-02-12 13:43] LABS: RBC,Urine Occasional #/hpf (0-3); WBC,Urine 50-100 #/hpf (0-3)
[2020-02-12 13:44] LABS: Amorphous Sediment,Urine 2+ /lpf; Bacteria,Urine 3+ /lpf; Squamous Epithelial Cell,Urine 20-50 #/hpf (0-5)
[2020-02-12 14:21] VITALS: BP 144/81; PULSE 90; RESP 20; O2SAT 98
[2020-02-12 14:55] VITALS: BP 144/81; PULSE 88; RESP 16; TEMP 36.6; O2SAT 98
== END 2020-02-12 14:56 | disposition home or self-care (01) ==
PROVIDERS: Emergency Provider Emergency Medicine; PCP Emergency Medicine
DX: L50.9 Urticaria, unspecified (principal); N30.01 Acute cystitis with hematuria; I50.9 Heart failure, unspecified; I10 Essential (primary) hypertension; Z95.2 Presence of prosthetic heart valve; F17.210 Nicotine dependence, cigarettes, uncomplicated; Z88.1 Allergy status to other antibiotic agents; Z88.2 Allergy status to sulfonamides; Z90.79 Acquired absence of other genital organ(s); Z90.49 Acquired absence of other specified parts of digestive tract; Z90.09 Acquired absence of other part of head and neck; Z79.899 Other long term (current) drug therapy
CPT/HCPCS: 81001; 87086; 87088; 87186; 99282

== ENCOUNTER 2020-02-28 10:07 | Emergency (ER) | payer OTHER, SELFPAY ==
[2020-02-28] VITALS (18 sets, daily range): BP systolic 110–152; BP diastolic 61–93; PULSE 95–109; RESP 20–30; TEMP 37.2–39.4; O2SAT 81–100; BMI 33.9
--- NOTE | 2020-02-28 10:07 | ECG_ITS ---
APPROVED REPORT Exam: Resting ECG HR:96 bpm ECG Measurements Heart Rate 96 AXES [place] 152 P 86 QRSd 100 QRS 204 QT 398 T 56 QTc 502 <Conclusion> Normal sinus rhythm Possible Left atrial enlargement Right superior axis deviation Pulmonary disease pattern Incomplete right bundle branch block Right ventricular hypertrophy with repolarization abnormality Prolonged QT Abnormal ECG Electronically signed by : Alvino Weathers, 02/29/2020 06:14:01
--- NOTE | 2020-02-28 10:11 | HMH.EDGENADL ---
ED Disposition Clinical Impression: Chest pain Qualifiers: Chest pain type: pleurodynia Qualified Code(s): R07.81 - Pleurodynia Fever Qualifiers: Fever type: unspecified Qualified Code(s): R50.9 - Fever, unspecified Respiratory failure with hypoxia Qualifiers: Chronicity: acute Qualified Code(s): J96.01 - Acute respiratory failure with hypoxia Disposition: Xfer Short-Term Hosp Condition on Discharge: Fair Referrals: Gigi Blank MD [Primary Care Provider] - Forms: Transfer Record - ED - Critical Care Critical Care Time: Yes Attestation: On , the high probability of a clinically significant, sudden or life threatening deterioration of the following system(s) required my full and direct attention, intervention and personal management. The time I documented below is in addition to time spent performing reported procedures but includes the following listed in this critical care notation. Total Critical Care Time: 45 Vital system(s) involved:: Respiratory Failure My critical care processes included: Assessment & monitoring of V/S, Initial and Re-exams, Data Review/Interpretation, Coordinating Care, Medication Orders and management, Documentation Medical Decision Making - Medical Records Medical records reviewed: Yes: I reviewed the patient's medical records. - Talon Inquiry Pt receiving controlled substance: Yes Talon was queried for this patient: Yes Reference #:: [id number] Risks and benefits of using a controlled substance: were not discussed with pt by me Comment: 7 rxs for suboxone, last was in May 2019 Vital Signs: 02/28/20 10:07 02/28/20 10:30 02/28/20 10:50 Temperature 98.9 F Temperature Source Oral Pulse Rate Pulse Rate [Radial] 95 H 100 H 98 H Respiratory Rate 22 20 Blood Pressure Blood Pressure [Right Arm] 125/93 H 134/82 127/68 Blood Pressure Mean [Right Arm] 103 99 87 Blood Pressure Source Blood Pressure Source [Right Arm] Automatic Cuff Automatic Cuff Automatic Cuff Blood Pressure Position Blood Pressure Position [Right Arm] Sitting Sitting Sitting 02 Sat by Pulse Oximetry 100 92 L 95 Oxygen Delivery Method Room Air Room Air Oxygen Flow Rate (LPM) 02/28/20 11:32 02/28/20 12:00 02/28/20 12:30 Temperature Temperature Source Pulse Rate Pulse Rate [Radial] 95 H 96 H Respiratory Rate Blood Pressure Blood Pressure [Right Arm] 112/78 112/78 132/81 Blood Pressure Mean [Right Arm] 89 89 98 Blood Pressure Source Blood Pressure Source [Right Arm] Automatic Cuff Automatic Cuff Automatic Cuff Blood Pressure Position Blood Pressure Position [Right Arm] Sitting Sitting Sitting 02 Sat by Pulse Oximetry 95 90 L Oxygen Delivery Method Room Air Room Air Oxygen Flow Rate (LPM) 02/28/20 12:45 02/28/20 13:00 02/28/20 13:30 Temperature Temperature Source Pulse Rate Pulse Rate [Radial] 98 H 100 H Respiratory Rate 20 Blood Pressure Blood Pressure [Right Arm] 123/61 123/61 137/91 H Blood Pressure Mean [Right Arm] 81 81 106 Blood Pressure Source Blood Pressure Source [Right Arm] Automatic Cuff Automatic Cuff Blood Pressure Position Blood Pressure Position [Right Arm] Sitting Sitting Sitting 02 Sat by Pulse Oximetry 86 L 92 L Oxygen Delivery Method Nasal Cannula Room Air Oxygen Flow Rate (LPM) 2 02/28/20 13:40 02/28/20 14:00 02/28/20 14:22 Temperature 101.8 F H 101.8 F H Temperature Source Oral Oral Pulse Rate Pulse Rate [Radial] 106 H 107 H 108 H Respiratory Rate 22 30 H Blood Pressure Blood Pressure [Right Arm] 143/67 H 143/67 H 152/82 H Blood Pressure Mean [Right Arm] 92 92 105 Blood Pressure Source Blood Pressure Source [Right Arm] Automatic Cuff Automatic Cuff Blood Pressure Position Blood Pressure Position [Right Arm] Sitting Sitting 02 Sat by Pulse Oximetry 88 L 81 L 92 L Oxygen Delivery Method Nasal Cannula Room Air Nasal Cannula Oxygen Flow Rate (LPM) 2 4 02/28/20 14:36 02/28/20
--- NOTE | 2020-02-28 10:18 | XR_ITS ---
PROCEDURE: XR CHEST PORTABLE CLINICAL HISTORY: CP right-sided, smoking history COMPARISON: CXR2V XR chest 2V from 07/16/2018 CXR2V XR chest 2V from 11/30/2018 CXR2V XR chest 2V from 12/23/[address] angio chest from 12/23/2018 FINDINGS: This is a somewhat poor inspiration. There is some minimal crowding of vascular markings at the lung bases. I see no definite pneumonic infiltrate. There are sternal wire sutures. There is mild or borderline cardiomegaly however there is no pulmonary congestion and there is no pleural fluid. There monitor lines overlying the chest. IMPRESSION: Somewhat poor inspiration, stable borderline cardiomegaly Dictated by: Dr. Carlos Corrigan MD 02/28/2020 10:[address] Carlos Corrigan MD in [place] 02/28/2020 10:36
[2020-02-28 10:27] LABS: Basophils % 0.3 % (0.1-2.0); Eosinophils # 0.1 K/mm3 (0.0-0.4); Hematocrit 38.6 % (37.0-47.0); Hemoglobin 12.3 g/dL (12.2-16.2); Lymphocytes # 1.8 K/mm3 (0.7-4.5); Lymphocytes % 21.9 % (10-50); Mean Corpuscular HGB Conc 31.8 g/dL (31.8-35.4); Mean Corpuscular Volume 84.8 fl (81-99); Mean Platelet Volume 7.8 fl (7.4-10.4); Monocytes # 0.5 K/mm3 (0.1-1.0); Monocytes % 6.2 % (1.7-9.3); Neutrophils % 70.6 % (37.0-80.0); Platelet Count 105 K/mm3 (142-424); Red Blood Count 4.55 M/mm3 (4.20-5.40); Red Cell Distribution Width 16.5 % (11.5-17.5); White Blood Count 8.5 K/mm3 (4.8-10.8)
[2020-02-28 10:43] LABS: Chloride 104 mmol/L (98-107)
[2020-02-28 10:44] LABS: Potassium 4.3 mmoL/L (3.5-5.1); Sodium 138 mmol/L (136-145)
[2020-02-28 10:46] LABS: Blood Urea Nitrogen 15 mg/dl (7-17); Creatinine Clearance Estimated 161 mL/min (50-200); Estimated Glomerular Filt Rate 83 ml/min (>60); GFR (African American) 101 ML/MIN (>60)
[2020-02-28 10:47] LABS: Anion Gap 12.3 mEq/L (5-15); Calcium 8.9 mg/dl (8.4-10.2); Carbon Dioxide 26 mmol/L (22.0-30.0); Glucose 155 mg/dl (74-100)
[2020-02-28 11:01] LABS: Troponin I < 0.01 ng/ml (0.00-0.034)
--- NOTE | 2020-02-28 11:05 | CT_ITS ---
PROCEDURE: CT ANGIO CHEST CLINCIAL INDICATION: pleuritic chest pain, hemoptysis, h/o PE COMPARISON: [facility] CT angio chest from 12/23/2018 TECHNIQUE: IV Contrast: 70ML OPTIRAY 350 Axial images obtained with sagittal and coronal reformats. All CT scans at the facility use one or more dose reduction, viz: automated exposure control, ma/kV adjustment per patient size (including targeted exams where dose is matched to indication, i.e. head), or iterative reconstruction technique. FINDINGS: HEART AND MEDIASTINAL STRUCTURES: There is borderline generalized cardiomegaly. Sternal wires are seen. There is prominent anterior superior mediastinal lymphadenopathy similar to the previous study. Moderate subcarinal adenopathy is noted as well and this appears to be stable. There is less than satisfactory timing for adequate vascular opacification making evaluation for acute pulmonary embolus suboptimal. However I doubt acute pulmonary emboli. There does appear to be some scarring from possibly previous pulmonary emboli in the segmental branch left upper lobe and some scarring in sub segmental branches right lower lobe. LUNGS AND PLEURAL SPACES: There is a calcified granuloma right apex. The lung rodriguez appear clear of active infiltrate. There is minimal postinflammatory scarring and or atelectasis right middle lobe. BONY STRUCTURES: Minor multilevel degenerate changes of the thoracic spine are noted. UPPER ABDOMEN: Unremarkable. ADDITIONAL FINDINGS: No other significant abnormalities. IMPRESSION: Less than satisfactory timing and vascular opacification but no definite acute pulmonary embolus is identified. There are couple of areas of probable post embolic arterial scarring noted. Stable mediastinal lymphadenopathy and lymphomatous etiology is a consideration. Dictated by: Dr. Carlos Corrigan MD 02/28/2020 13:[address] Carlos Corrigan MD in [place] 02/28/2020 13:02
--- NOTE | 2020-02-28 11:06 | CT_ITS ---
PROCEDURE: CT CERVICAL SPINE WO CON CLINICAL INDICATION: neck and radicular pain right side COMPARISON: [facility] CT CERVICAL SPINE W/O CONT from 03/03/2014 TECHNIQUE: Axial images obtained with sagittal and coronal reformats. All CT scans at the facility use one or more dose reduction, viz: automated exposure control, ma/kV adjustment per patient size (including targeted exams where dose is matched to indication, i.e. head), or iterative reconstruction technique. Axial spiral CT scanning performed of the cervical spine beginning at the base of the skull and continuing to the upper T-spine. 3-D multiplanar reconstruction with 3-D manipulation of volumetric data set in image rendering was completed by the radiologist and/or technologist with the supervision of the radiologist on independent workstation. FINDINGS: There is normal curvature and alignment. All 7 cervical vertebrae appear intact and disc spaces are well maintained throughout. The spinal canal is normal in size. There is no abnormal disc protrusion. There is no significant neural foraminal narrowing on either side. Again noted is prominent bilateral cervical lymphadenopathy the prevertebral soft tissues are normal and the odontoid is normal. IMPRESSION: Cervical spine intact with no fracture nor subluxation. Prominent bilateral cervical lymphadenopathy with extension into the superior mediastinum primarily to the left of midline. Dictated by: Dr. Carlos Corrigan MD 02/28/2020 13:[address] Carlos Corrigan MD in [place] 02/28/2020 13:08
--- NOTE | 2020-02-28 12:40 | PC.NURSE ---
PT RETURNED FROM RAD
--- NOTE | 2020-02-28 13:47 | PC.NURSE ---
Medic went in to complete vital signs on patient and she requested for her temperature to be rechecked stating she felt like she was getting a fever. Upon check temp was 102.9 orally after eating ice. Spoke with Dr. Moore, will obtain blood cultures, lactic and COVID test. Will also assess rectal temp.
--- NOTE | 2020-02-28 13:53 | PC.NURSE ---
LAB AT BEDSIDE TO PERFORM COVID SWAB AT THIS TIME
--- NOTE | 2020-02-28 13:53 | PC.NURSE ---
PT BEING PLACED IN R/O COVID PRECAUTIONS AT THIS TIME AND MOVED TO TRAUMA ROOM 1 PER SINGING TELEGRAM PERFORMER REQUEST FOR POSSIBLE DETERIORATION OF PT CONDITION.
[2020-02-28 14:06] LABS: Adenovirus,PCR Not Detected (NotDetected); Bordetella Pertussis Not Detected (NotDetected); Chlamydophila Pneumoniae, PCR Not Detected (NotDetected); Coronavirus 19, PCR Not Detected (NotDetected); Coronavirus 229E Not Detected (NotDetected); Coronavirus NL63 Not Detected (NotDetected); Coronavirus OC43 Not Detected (NotDetected); Coronovirus HKU1,PCR Not Detected (NotDetected); Human Metapneumovirus Not Detected (NotDetected); Influenza A, PCR Not Detected (NotDetected); Influenza AH1, 2009 Not Detected (NotDetected); Influenza AH1, PCR Not Detected (NotDetected); Influenza AH3,PCR Not Detected (NotDetected); Influenza B, PCR Not Detected (NotDetected); Mycoplasma Pneumoniae, PCR Not Detected (NotDected); Parainfluenza 1, PCR Not Detected (NotDetected); Parainfluenza 2, PCR Not Detected (NotDetected); Parainfluenza 3, PCR Not Detected (NotDetected); Parainfluenza 4, PCR Not Detected (NotDetected); Respiratory Syncytial Virus Not Detected (NotDetected); Rhinovirus/Enterovirus Not Detected (NotDetected)
[2020-02-28 14:16] LABS: C-Reactive Protein 20.2 mg/L (0-4); Lipase 256 U/L (23-300)
--- NOTE | 2020-02-28 14:18 | PC.NURSE ---
Called [facility] per MD request, Dr Moore spoke with ED doc at . Doc stated that they were on divert and unable to accept pt.
[2020-02-28 14:26] LABS: Erythrocyte Sedimentation Rate 22 mm/hr (0-20)
[2020-02-28 14:27] LABS: Appearance,Urine CLEAR (Clear); Bilirubin,Urine Negative (Negative); Blood, Urine Negative (Negative); Color,Urine YELLOW (Yellow); Glucose,Urine (UA) Negative (Negative); Ketones,Urine Negative (Negative); Leukocyte Esterase,Urine Negative (Negative); Microscopic, Urine URINE MICROSCOPIC (MICROSCOPIC); Nitrate,Urine Negative (Negative); Protein,Urine Negative (Negative); Specific Gravity, Urine <= 1.005 (1.005-1.030)
[2020-02-28 14:31] LABS: Alanine Aminotransferase 74 U/L (12-78); Albumin Level 3.9 g/dl (3.5-5.0); Alkaline Phosphatase 311 U/L (38-126); Aspartate Amino Transferase 72 U/L (14-36); Bilirubin,Direct 0.9 mg/dl (0.0-0.4); Bilirubin,Indirect 0.7 mg/dL (0.0-0.9); Bilirubin,Total 1.6 mg/dl (0.2-1.3); Bilirubin,Unconjugated 0.7 mg/dL (0.0-1.1)
--- NOTE | 2020-02-28 14:33 | PC.NURSE ---
Family in the lobby keeping them updated.
--- NOTE | 2020-02-28 14:33 | PC.NURSE ---
v/s delayed due to attempting to insert a second IV attempt.
[2020-02-28 14:38] LABS: Barbiturates Screen,Urine Negative ng/ml (<200)
[2020-02-28 14:39] LABS: Benzodiazepines Screen,Urine Negative ng/ml (<200)
[2020-02-28 14:40] LABS: Methadone Screen,Urine Negative ng/ml (<300)
[2020-02-28 14:41] LABS: Cannabinoid Screen,Urine Negative ng/ml (<50); Cocaine Screen,Urine Negative ng/ml (<300)
--- NOTE | 2020-02-28 14:41 | PC.NURSE ---
[facility]
[2020-02-28 14:42] LABS: Opiate Screen,Urine Positive ng/ml (<300)
[2020-02-28 14:43] LABS: Phencyclidine Screen,Urine Negative ng/ml (<25)
[2020-02-28 14:44] LABS: Bacteria,Urine 1+ /lpf; RBC,Urine Occasional #/hpf (0-3); Squamous Epithelial Cell,Urine Occasional #/hpf (0-5); WBC,Urine Occasional #/hpf (0-3)
--- NOTE | 2020-02-28 14:45 | PC.NURSE ---
Dr Garcia to return call.
--- NOTE | 2020-02-28 14:57 | PC.NURSE ---
Dr Garcia returned call.
--- NOTE | 2020-02-28 15:02 | PC.NURSE ---
Went in to assist with IV access. Attempted left foot and was unsuccessful. Attempted left forearm and vein blew. Pt has hx of IV drug use and has scar tissue up and down both arms. Pt dusky in color, need for 2nd IV was necessary. Placed 20G in the left EJ with with no complications. Bright red blood return and IV flushed well. Pt tolerated procedure well.
--- NOTE | 2020-02-28 15:11 | PC.NURSE ---
[facility] accepted pt. They will be calling back with a bed assignment.
[2020-02-28 15:13] LABS: Lactic Acid 0.8 mmol/L (0.7-2.1)
[2020-02-28 15:30] LABS: Troponin I < 0.01 ng/ml (0.00-0.034)
--- NOTE | 2020-02-28 15:56 | PC.NURSE ---
[facility] aware of transfer.
[2020-03-03 07:31] LABS: Amphetamine Positive (.); Amphetamines Positive (.); Methamphetamine Positive (.)
[2020-03-03 09:27] LABS: Amphetamine (GC/MS) 1438 ng/mL (Cutoff=500); Methamphetamine (GC/MS) >4000 ng/mL (Cutoff=500)
== END 2020-02-28 16:50 | disposition short-term general hospital (02) ==
PROVIDERS: Emergency Provider Emergency Medicine; PCP Emergency Medicine
DX: R07.89 Other chest pain (principal); J96.01 Acute respiratory failure with hypoxia; Z86.711 Personal history of pulmonary embolism; Z95.2 Presence of prosthetic heart valve; B18.2 Chronic viral hepatitis C; F17.210 Nicotine dependence, cigarettes, uncomplicated; I10 Essential (primary) hypertension; Z90.49 Acquired absence of other specified parts of digestive tract; Z90.79 Acquired absence of other genital organ(s); Z88.1 Allergy status to other antibiotic agents; Z88.2 Allergy status to sulfonamides; Z88.6 Allergy status to analgesic agent; F19.10 Other psychoactive substance abuse, uncomplicated
CPT/HCPCS: 36415; 71045; 71275; 72125; 80048; 80076; 80305; 80324; 81001; 83605; 83690; 84484; 85025; 85651; 86140; 87040; 87077; 87186; 87581; 87633; 87798; 93005; 96365; 96367; 96375; 96376; 99285; J1335; J2405; Q9967

== ENCOUNTER 2020-03-24 06:58 | Emergency (ER) | payer OTHER, SELFPAY ==
[2020-03-24] VITALS (11 sets, daily range): BP systolic 124–150; BP diastolic 70–97; PULSE 79–100; RESP 18–32; TEMP 37.2–38.4; O2SAT 89–96; BMI 33.4
--- NOTE | 2020-03-24 | ECG_ITS ---
APPROVED REPORT Exam: Resting ECG HR:90 bpm ECG Measurements Heart Rate 90 AXES [place] 154 P 84 QRSd 106 QRS 230 QT 466 T 66 QTc 570 <Conclusion> Normal sinus rhythm Right superior axis deviation Pulmonary disease pattern Incomplete right bundle branch block Right ventricular hypertrophy Nonspecific T wave abnormality Prolonged QT Abnormal ECG Electronically signed by : Alvino Weathers, 03/26/2020 17:13:36
--- NOTE | 2020-03-24 07:14 | XR_ITS ---
PROCEDURE: XR CHEST 2V CLINICAL HISTORY: sob Shortness of breath COMPARISON: CXR2V XR chest 2V from 11/30/2018 CXR2V XR chest 2V from 12/23/2018 XR CHEST PORTABLE from 02/28/2020 CT ANGIO CHEST from 02/28/2020 FINDINGS: Prior median sternotomy. Normal heart size. No lobar consolidation or collapse. There is mild prominence of the interstitium. There has been prior tricuspid valve replacement No acute bony abnormalities. IMPRESSION: Chronic changes, no acute finding Dictated by: Donovan Munguia MD 03/24/2020 09:12 Electronically signed by Donovan Munguia MD in [place] 03/24/2020 09:12
--- NOTE | 2020-03-24 07:29 | PC.NURSE ---
Pt to rad.
--- NOTE | 2020-03-24 07:34 | PC.NURSE ---
Pt returned from rad.
[2020-03-24 07:36] LABS: Basophils % 0.4 % (0.1-2.0); Eosinophils % 0.4 % (0.1-12.0); Hematocrit 33.6 % (37.0-47.0); Hemoglobin 10.9 g/dL (12.2-16.2); Lymphocytes # 1.1 K/mm3 (0.7-4.5); Lymphocytes % 15.2 % (10-50); Mean Corpuscular HGB Conc 32.5 g/dL (31.8-35.4); Mean Corpuscular Hemoglobin 27.1 pg (27.0-31.2); Mean Corpuscular Volume 83.3 fl (81-99); Mean Platelet Volume 8.8 fl (7.4-10.4); Monocytes # 0.5 K/mm3 (0.1-1.0); Monocytes % 7.6 % (1.7-9.3); Neutrophils # 5.4 K/mm3 (1.8-7.8); Neutrophils % 76.4 % (37.0-80.0); Platelet Count 112 K/mm3 (142-424); Red Blood Count 4.04 M/mm3 (4.20-5.40); Red Cell Distribution Width 16.4 % (11.5-17.5); White Blood Count 7.1 K/mm3 (4.8-10.8)
[2020-03-24 07:42] LABS: Chloride 99 mmol/L (98-107)
[2020-03-24 07:43] LABS: Potassium 4.1 mmoL/L (3.5-5.1); Sodium 134 mmol/L (136-145)
[2020-03-24 07:45] LABS: Alanine Aminotransferase 20 U/L (12-78); Albumin Level 3.8 g/dl (3.5-5.0); Albumin/Globulin Ratio 0.9 (1.1-1.8); Alkaline Phosphatase 224 U/L (38-126); Anion Gap 14.1 mEq/L (5-15); Aspartate Amino Transferase 37 U/L (14-36); Bilirubin,Total 1.2 mg/dl (0.2-1.3); Blood Urea Nitrogen 13 mg/dl (7-17); Carbon Dioxide 25 mmol/L (22.0-30.0); Creatinine Clearance Estimated 159 mL/min (50-200); Estimated Glomerular Filt Rate 83 ml/min (>60); GFR (African American) 101 ML/MIN (>60); Globulin 4.1 g/dL (1.3-3.2); Total Protein,Serum 7.9 g/dl (6.3-8.2)
[2020-03-24 07:46] LABS: Calcium 8.7 mg/dl (8.4-10.2); Glucose 166 mg/dl (74-100); Lactic Acid 1.6 mmol/L (0.7-2.1)
[2020-03-24 07:51] LABS: C-Reactive Protein 27.7 mg/L (0-4)
--- NOTE | 2020-03-24 07:55 | CT_ITS ---
PROCEDURE: CT ABDOMEN PELVIS W CON CLINICAL INDICATION: pain Abdominal pain and fever COMPARISON: [facility] CT abdomen pelvis w con from 12/23/2018 TECHNIQUE: IV Contrast: 75ML OPTIRAY 350 Oral Contrast None Axial images obtained with sagittal and coronal reformats. All CT scans at the facility use one or more dose reduction, viz: automated exposure control, ma/kV adjustment per patient size (including targeted exams where dose is matched to indication, i.e. head), or iterative reconstruction technique. FINDINGS: There is hepatosplenomegaly with massive splenomegaly at 19 cm. There is a small amount of ascites. Diffuse anasarca. There is a tricuspid valve prosthesis present. The pancreas and adrenal glands are unremarkable. Multiple varices are present. There is some edema of the peritoneal and retroperitoneal fat which could be seen with the diffuse anasarca. Mild portal adenopathy is noted not significantly changed. 3 cm right renal cyst. No renal or ureteral calculi. No intestinal obstruction or free air. No evidence of appendicitis or diverticulitis. No acute bony findings. Multiple unopacified bowel loops in the abdomen or pelvis which could obscure or mimic pathology. If symptoms persist, consider repeat exam with IV and oral contrast. IMPRESSION: 1. Hepatosplenomegaly with ascites and varices consistent with portal hypertension. 2. Diffuse anasarca also with edematous changes of the peritoneal and retroperitoneal fat. Dictated by: Donovan Munguia MD 03/24/2020 09:10 Electronically signed by Donovan Munguia MD in [place] 03/24/2020 09:10
[2020-03-24 07:57] LABS: NT Pro Brain Natriuretic Pep. 1270 pg/mL (0-125)
[2020-03-24 07:58] LABS: Erythrocyte Sedimentation Rate 33 mm/hr (0-20)
--- NOTE | 2020-03-24 07:58 | CT_ITS ---
PROCEDURE: CT ANGIO CHEST CLINCIAL INDICATION: sob, hx blood clot lt arm Shortness of air, left upper extremity DVT, fever COMPARISON: [facility] CT angio chest from 12/23/2018 CT ANGIO CHEST from 02/28/2020 TECHNIQUE: IV Contrast: 70ML OPTIRAY 350 Axial images obtained with sagittal and coronal reformats. All CT scans at the facility use one or more dose reduction, viz: automated exposure control, ma/kV adjustment per patient size (including targeted exams where dose is matched to indication, i.e. head), or iterative reconstruction technique. FINDINGS: There is adenopathy in the mediastinum as before. Left axillary adenopathy also noted. No definite pulmonary embolus is evident. 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 This however is a chronic finding. There is a stable 5 mm nodule in the right upper lobe. There are scattered areas of scarring 7 mm nodular opacity is present in the left lower lobe not readily apparent previously. No effusions.. There is mild thickening of the esophagus which is nonspecific. Good lowered IMPRESSION: 1. No definite pulmonary embolus. 2. Persistent mediastinal adenopathy and left axillary adenopathy 3. 7 mm nodular opacity left lower lobe. Recommend 3 month follow-up Dictated by: Donovan Munguia MD 03/24/2020 09:05 Electronically signed by Donovan Munguia MD in [place] 03/24/2020 09:05
[2020-03-24 08:00] LABS: Troponin I < 0.01 ng/ml (0.00-0.034)
--- NOTE | 2020-03-24 08:03 | PC.NURSE ---
Pt returning to rad
[2020-03-24 08:24] LABS: Amylase 43 U/L (30-110); Lipase 75 U/L (23-300)
--- NOTE | 2020-03-24 09:09 | PC.NURSE ---
pts mother has called twice wanting updates on pt. pt has given consent to speak with her mother but does not want to talk to her herself.
--- NOTE | 2020-03-24 10:37 | HMH.EDFEV ---
ED Disposition Clinical Impression: Fever of unknown origin, Hypertension Disposition: Home, Self-Care Condition on Discharge: Good Instructions: DI for Fever (Symptom) -- Adult Additional Instructions: Please self isolate to you get your COVID test back. 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 Prescriptions: Azithromycin 250 mg PO DAILY 5 Days #6 tab Transmission Status: Pending to [facility] Furosemide [Lasix 20mg tab] 20 mg PO DAILY 30 Days #30 tab Transmission Status: Pending to [facility] Losartan Potassium 50 mg PO DAILY 30 Days #30 tab Transmission Status: Pending to [facility] Referrals: Provider,Referral, [Primary Care Provider] - - Critical Care Critical Care Time: No Attestation: On 03/24/20, the high probability of a clinically significant, sudden or life threatening deterioration of the following system(s) required my full and direct attention, intervention and personal management. The time I documented below is in addition to time spent performing reported procedures but includes the following listed in this critical care notation. Medical Decision Making - Medical Records Medical records reviewed: Yes: I reviewed the patient's medical records. - Talon Inquiry Pt receiving controlled substance: No Vital Signs: 03/24/20 07:02 03/24/20 07:40 03/24/20 08:41 Temperature 101.1 F H 99.7 F H Temperature Source Oral Oral Pulse Rate [Left Radial] 100 H 91 H 88 Respiratory Rate 32 H 18 Blood Pressure [Right Arm] 150/97 H 146/82 H 126/70 Blood Pressure Mean [Right Arm] 114 103 88 Blood Pressure Source [Right Arm] Automatic Cuff Blood Pressure Position [Right Arm] Sitting Sitting Sitting 02 Sat by Pulse Oximetry 91 L 95 95 Oxygen Delivery Method Room Air Room Air Nasal Cannula Oxygen Flow Rate (LPM) 3 03/24/20 08:56 03/24/20 09:30 03/24/20 10:08 Temperature Temperature Source Pulse Rate [Left Radial] 86 84 83 Respiratory Rate Blood Pressure [Right Arm] 126/76 133/82 126/81 Blood Pressure Mean [Right Arm] 92 99 96 Blood Pressure Source [Right Arm] Automatic Cuff Automatic Cuff Automatic Cuff Blood Pressure Position [Right Arm] Sitting Sitting Sitting 02 Sat by Pulse Oximetry 95 96 96 Oxygen Delivery Method Nasal Cannula Nasal Cannula Oxygen Flow Rate (LPM) 2 2 - Lab Data Lab results reviewed: Yes: I reviewed the patient's lab results. Lab Results 03/24/20 07:28: WBC 7.1, RBC 4.04 L, Hgb 10.9 L, Hct 33.6 L, MCV 83.3, MCH 27.1, MCHC 32.5, RDW 16.4, Plt Count 112 L, MPV 8.8, Neut % (Auto) 76.4, Lymph % (Auto) 15.2, [place] % (Auto) 7.6, Eos % (Auto) 0.4, Baso % (Auto) 0.4, Neut # (Auto) 5.4, Lymph # (Auto) 1.1, [place] # (Auto) 0.5, Eos # (Auto) 0.0, Baso # (Auto) 0.0 03/24/20 07:28: Sodium 134 L, Potassium 4.1, Chloride 99, Carbon Dioxide 25, Anion Gap 14.1, BUN 13, Creatinine 0.80, Estimated Creat Clear 159, Estimated GFR 83, Est GFR ( Amer) 101, Glucose 166 H, Calcium 8.7, Total Bilirubin 1.2, AST 37 H, ALT 20, Alkaline Phosphatase 224 H, C-Reactive Protein 27.7 H, Total Protein 7.9, Albumin 3.8, Globulin 4.1 H, Albumin/Globulin Ratio 0.9 L 03/24/20 07:28: ESR 33 H 03/24/20 07:28: Lactate 1.6 03/24/20 07:28: Troponin I < 0.01, NT-Pro-B Natriuret Pep 1270 H 03/24/20 07:28: Amylase 43, Lipase 75 Result diagrams: 03/24/20 07:28 03/24/20 07:28 Orders (Tests/Meds): ED MEDICATIONS Discontinued Medications Generic Name Dose Route Start Last Admin Trade Name Joelle PRN Reason Stop Dose Admin Acetaminophen 1,000 mg 03/24/20 07:33 03/24/20 07:33 Tylenol 500mg Tablet PO 03/24/20 07:34 1,000 mg ONCE ONE Administration Hydromorphone HCl 1 mg 03/24/20 09:01 03/24/20 08:55 Dilaudid 2mg/Ml Syringe IV 03/24/20 09:02 1 mg ONCE ONE Administration Sodium Chloride 1,000 mls @ 999 mls/hr 03/24/20 07:15 03/24/20 07:33 Sod Chlor 0.9% 1000ml Bag IV 03/24/20 08:15 999 mls/hr .[id number] KHOA Admi
--- NOTE | 2020-03-24 11:18 | PC.NURSE ---
Pt up to restroom
--- NOTE | 2020-03-24 11:23 | PC.NURSE ---
out put 700cc urine
[2020-03-24 11:28] LABS: Microscopic, Urine URINE MICROSCOPIC (MICROSCOPIC)
[2020-03-24 11:29] LABS: Appearance,Urine CLEAR (Clear); Bilirubin,Urine Negative (Negative); Blood, Urine TRACE-I (Negative); Color,Urine YELLOW (Yellow); Glucose,Urine (UA) Negative (Negative); Ketones,Urine Negative (Negative); Leukocyte Esterase,Urine 2+ (Negative); Nitrate,Urine Negative (Negative); PH,Urine 6.5 (5.0-8.5); Protein,Urine TRACE (Negative); Specific Gravity, Urine 1.015 (1.005-1.030)
[2020-03-24 11:36] LABS: Amorphous Sediment,Urine 1+ /lpf; Bacteria,Urine Trace /lpf; RBC,Urine Occasional #/hpf (0-3)
--- NOTE | 2020-03-24 11:45 | PC.NURSE ---
pt urinated 700ml at this time
--- NOTE | 2020-03-24 11:59 | PC.NURSE ---
ambulated pt around ed with pulse ox. sats stayed at 94% while ambulating
[2020-03-25 16:24] LABS: Covid-19 Nasal PCR Sendout UK Not Detected
--- NOTE | 2020-03-26 21:48 | PC.NURSE ---
Covid-19 test results negative, patient given results via phone.
== END 2020-03-24 12:09 | disposition home or self-care (01) ==
PROVIDERS: Family Medicine; Emergency Provider Emergency Medicine; PCP Emergency Medicine
DX: R50.9 Fever, unspecified (principal); I10 Essential (primary) hypertension; Z95.2 Presence of prosthetic heart valve; Z90.79 Acquired absence of other genital organ(s); Z90.49 Acquired absence of other specified parts of digestive tract
CPT/HCPCS: 71046; 71275; 74177; 80053; 81001; 82150; 83605; 83690; 83880; 84484; 85025; 85651; 86140; 87040; 87086; 93005; 96365; 96375; 99285; J2405; Q9967; U0003

== ENCOUNTER 2020-12-04 11:02 | Emergency (ER) | payer OTHER, SELFPAY ==
[2020-12-04 11:13] VITALS: BMI 77.7
--- NOTE | 2020-12-04 11:14 | XR_ITS ---
PROCEDURE: XR CHEST PORTABLE CLINICAL HISTORY: code blue COMPARISON: CR CXR2V XR chest 2V from 12/23/2018 CR XR CHEST PORTABLE from 02/28/[address] ANGIO CHEST from 03/24/2020 CR XR CHEST 2V from 03/24/2020 FINDINGS: 11:02 a.m.. Endotracheal tube tip is low at the ostium of the right mainstem bronchus. Nasogastric tube tip is in the region of the body of the stomach. There is an overlying backboard with artifact. There has been a prior median sternotomy. Consolidation is present in both upper and lower lobes peripherally consistent with bilateral pneumonia. IMPRESSION: Bilateral pneumonia. Low position of endotracheal tube. Dictated by: Donovan Munguia MD 12/04/2020 13:48 Donovan Munguia MD in [place] 12/04/2020 13:48
--- NOTE | 2020-12-04 11:18 | HMH.EDCPR ---
ED Disposition Clinical Impression: Cardiopulmonary arrest Disposition: Condition on Discharge: Time of Disposition: 11:33 - Critical Care Critical Care Time: No Attestation: On , the high probability of a clinically significant, sudden or life threatening deterioration of the following system(s) required my full and direct attention, intervention and personal management. The time I documented below is in addition to time spent performing reported procedures but includes the following listed in this critical care notation. [facility] Code Documentation - Arrest Information Outside of Hospital The Code Document Section documentation for [id number] Che Garcia was populated with data that defaulted in from the hand candle molder in the Code Assessment on f_Reg Service Date] to provide within this report, the status and treatment of the patient in the ED during a Code. This documentation will be supplemented with my direct findings within the body of the report. Date Treatment Initiated: 12/04/20 Treatment Initiated By: EMS Location of Arrest: home Arrest Witnessed: Yes - ALS Code Inititation ALS Initiated By: EMS ALS Type: ACLS - Patient Condition At Code Start Condition of Patient at Start of Code: Pulseless, Apneic, Unconscious - Circulation Initial Cardiac Rhythm: Asystole - Oxygenation Oxygen Breathing Status: Apneic Oxygen Delivery Method: Bag-Valve Mask - Vascular Access Left Antecubital Insertion Date: 12/04/20 - Code End Time Code Ended: 11:12 Patient Successfully Resuscitated: No Reason Code Ended: - Efforts Terminated Family Members Present During Code: No - Patient Expiration Date: 12/04/20 Expiration Time: 11:12 Pronounced by: DO Erin Time Pronounced: 11:12 Post Mortem Care Provided: Yes Medical Decision Making - Medical Records Medical records reviewed: Yes: I reviewed the patient's medical records. - Talon Inquiry Pt receiving controlled substance: No Orders (Tests/Meds): ORDERS Category Date Time Status Chest XR -- portable [XR chest portable] Stat Exams 12/04/20 11:14 Taken - Radiology Data #1 Image(s): Chest Image Reviewed: Yes I reviewed the patient's radiology results, Yes I reviewed the patient's radiology image ETT in place. NG tube in place Medical Decision Narrative: 35yo F brought to the emergency department as CODE BLUE in progress. Patient in asystole on arrival. Continued per ACLS protocol. Patient remained in asystole throughout the code. There was never any spontaneous respirations. Patient never developed any cardiac activity. Patient was successfully intubated. Patient was easy to bag and had bilateral breath sounds on auscultation. An NG tube was placed and visualized on x-ray. Patient had a glucose of 73. Patient had a long history of drug abuse, open heart surgery, heart failure, tobacco abuse. There were no other correctable actions that were found. Patient was pronounced at 1112. Family was notified by staff and are in route to hospital at this time. CPR HPI - General Stated Complaint: Code Blue Time Seen by Provider: 12/04/20 11:18 Mode of Arrival: EMS Source of Information: EMS - History of Present Illness HPI narrative: 35yo F known history of IV drug abuse presents to the emergency department via EMS after collapsing in her kitchen. EMS reports the patient was PEA on initial arrival and later converted to asystole. Patient received 2 of Narcan intranasal, 2 of Narcan IV, 2 rounds of epinephrine prior to arrival. She arrived CPR in progress with no airway. EMS reports patient has been down approximately 30 minutes prior to arrival. - Related Data Previous Rx's Medication Instructions Recorded Azithromycin 250 mg PO DAILY 5 Days #6 tab 03/24/20 Furosemide [Lasix 20mg tab] 20 mg PO DAILY 30 Days #30 tab 03/24/20 Losartan Potassium 50 mg PO DAILY 30 Days #30 tab 03/24/20
--- NOTE | 2020-12-04 11:26 | PC.NURSE ---
1052: PATIENT ARRIVED PER EMS IN FULL ARREST. CPR IN PROGRESS 1053: EPI 1MG IVP LAC 1053: NS AT 999ML/HR LAC 1054: NARCAN 2MG IVP LAC 1055: ASYSTOLE ON MONITOR, NO PULSE 1056: EPI 1MG IVP LAC 1056: IO PLACED TO LEFT TIBIA 1058: EPI 1MG IVP LAC 1059: ASYSTOLE, NO PULSE 1059: PATIENT INTUBATED WITH 7.5 ETT, 26 AT THE GUMS. TUBE VERIFIED BY BILATERAL BREATH SOUNDS AND COLOR CHANGE ON DETECTOR. 1102: EPI 1MG IVP LEFT IO 1102: 16FR NG TUBE PLACE IN LEFT NARE 1103: ASYSTOLE, NO PULSE 1105: EPI 1MG IVP LEFT IO 1106:ASYSTOLE, NO PULSE 1106: PORTABLE CXR 1108: EPI 1MG IVP LAC 1109: ASYSTOLE, NO PULSE 1111: EPI 1MG IVP LAC 1111: FSBS:75 1112: ASYSTOLE, NO PULSE 1112: TIME OF . PRONOUNCED PER DR. GILL. 1127: Marissa STORM RN SPEAKING WITH GINA MAGAÑA AND REQUESTED HIM TO COME TO [facility]. HE STATED HE IS ON HIS WAY. 1131: Marissa PRASAD CALLED TUB OPERATOR CORK TIPPER, TUB OPERATOR STATED HE WILL COME TO [facility]. 1136: POST MORTEM CARE PER Marissa STORM RN AND Grecia BUCK, COMPLEX CASE MANAGER. PILL FOUND IN A SMALL BAG UNDER LEFT BREAST. PHARMACY IDENTIFIED PILL A GABAPENTIN 800MG. INSULIN SYRINGE FOUND IN AXILLARY FOLD.
--- NOTE | 2020-12-04 11:49 | PC.NURSE ---
1140: TALA ALVARADO, RULED OUT FOR DONATION DUE TO VISIBLE TRACK ROGERS ON BILATERAL FOREARMS AND HX OF HEP. C.
[2020-12-04 14:10] VITALS: BP 0/0; PULSE 0; RESP 0; TEMP -17.7; TEMP 0; O2SAT 0
--- NOTE | 2020-12-04 14:10 | PC.NURSE ---
Pt left with corner
== END 2020-12-04 14:11 | disposition expired ==
PROVIDERS: Emergency Provider Family Medicine
DX: I46.9 Cardiac arrest, cause unspecified (principal); F19.20 Other psychoactive substance dependence, uncomplicated; Z95.2 Presence of prosthetic heart valve; I38 Endocarditis, valve unspecified; I10 Essential (primary) hypertension; I50.9 Heart failure, unspecified; F17.210 Nicotine dependence, cigarettes, uncomplicated; Z88.1 Allergy status to other antibiotic agents; Z88.2 Allergy status to sulfonamides; Z88.6 Allergy status to analgesic agent
CPT/HCPCS: 31500; 71045; 96374; 96375; 99291; J2310